=== PATIENT | female | born 1995 | race Caucasian/White ===

== ENCOUNTER 2020-10-21 03:54 | Inpatient (IN) | payer BC ==
[~2020-10-21] VITALS: Ht 154.9 cm; Wt 61.7 kg
[2020-10-21] MEDS ORDERED: MORPHINE SULFATE 4 MG/ML VIAL. IV PRN (04:00)
[2020-10-21] MEDS ORDERED: IV NORMAL SALINE 1000ML BAG 1,000 ML IV ONE (04:45)
[2020-10-21 04:56] LABS: BASO % 0 % (0-3); EOS # 0.1 x10^3/uL (0.0-0.7); EOS % 0 % (0-3); HEMATOCRIT 33.7 % (36.0-47.0); HEMOGLOBIN 11.5 g/dL (12.0-15.5); LYMPH # 1.1 x10^3/uL (1.0-4.8); LYMPH % 8 % (24-48); MEAN CORPUSCULAR HEMOGLOBIN 32 pg (25-35); MEAN CORPUSCULAR HGB CONC 34 g/dL (31-37); MEAN CORPUSCULAR VOLUME 93 fL (79-100); MONO # 1.4 x10^3/uL (0.0-1.1); MONO % 10 % (0-9); NEUT # 11.4 x10^3/uL (1.8-7.7); NEUT % 82 % (31-73); PLATELET COUNT 249 x10^3/uL (140-400); RED BLOOD COUNT 3.62 x10^6/uL (3.50-5.40); RED CELL DISTRIBUTION WIDTH 11.8 % (11.5-14.5)
[2020-10-21] MEDS ORDERED: cefTRIAXone IV Push 1 GM VIAL. IVP ONE (05:00)
[2020-10-21 05:14] LABS: CALCIUM 8.7 mg/dL (8.5-10.1); CREATININE 0.8 mg/dL (0.6-1.0); GFR 88.9; POTASSIUM 3.4 mmol/L (3.5-5.1)
[2020-10-21] MEDS ORDERED: KETOROLAC 15 MG/ML VIAL. IVP ONE (05:15)
[2020-10-21 05:20] LABS: ALBUMIN 3.3 g/dL (3.4-5.0); ALBUMIN/GLOBULIN RATIO 0.8 (1.0-1.7); MAGNESIUM 2.1 mg/dL (1.8-2.4); TOTAL BILIRUBIN 0.5 mg/dL (0.2-1.0); TOTAL PROTEIN 7.2 g/dL (6.4-8.2)
[2020-10-21] MEDS ORDERED: IOHEXOL 300 MG/ML 100ML VIAL. IV ONE (05:30)
[2020-10-21] MEDS ORDERED: CONTRAST GIVEN. MC PRN (05:30)
[2020-10-21] MEDS ORDERED: IOHEXOL 240 MG/ML 50ML VIAL. PO ONE (05:30)
--- NOTE | 2020-10-21 05:31 | PHYS DOC ---
Past Medical History Additional Past Medical Histor: Dmitry's, ADHD (FAYE RIOS DO) Past Surgical History: No Surgical History (FAYE RIOS DO) Smoking Status: Never Smoker Alcohol Use: Rarely Drug Use: Marijuana (FAYE RIOS DO) General Adult EDM: Chief Complaint: SKIN RASH/ABSCESS HPI: HPI: Patient is a 25 year old female presents with report of painful swelling and redness to left buttocks near her rectum that has been ongoing for the past several days. Patient reports was seen yesterday afternoon at [facility] urgent care and started on Augmentin and pain medication. Patient reports she is unsure if she had any fever however her temperature has only gotten up to 99 degrees. Patient has also been taking ibuprofen and Tylenol. Denies prior history of perirectal abscesses. Denies . Patient reports history of IUD. Denies diabetes. (FAYE RIOS DO) Review of Systems: Review of Systems: Constitutional: Denies fever or chills Eyes: Denies redness or eye pain HENT: Denies nasal congestion or sore throat Respiratory: Denies cough or shortness of breath Cardiovascular: Denies chest pain or palpitations GI: Denies abdominal pain; reports nausea : Denies dysuria or hematuria Musculoskeletal: Denies back pain or joint pain Integument: Denies rash; reports left perirectal swelling and redness Neurologic: Denies headache, focal weakness or sensory changes Complete systems were reviewed and found to be within normal limits, except as documented in this note. (FAYE RIOS DO) Heart Score: C/O Chest Pain: N/A (FAYE RIOS DO) Current Medications: Current Medications Medications (Trade) Dose Ordered Sig/Geoff Start Time Stop Time Status Last Admin Dose Admin Ceftriaxone Sodium (Rocephin) 1 gm 1X ONCE 10/21/20 05:00 10/21/20 05:12 DC Info (CONTRAST GIVEN -- Rx MONITORING) 1 each PRN DAILY PRN 10/21/20 05:30 10/23/20 05:29 Iohexol (Omnipaque 240 Mg/ml) 30 ml 1X ONCE 10/21/20 05:30 10/21/20 05:31 Iohexol (Omnipaque 300 Mg/ml) 75 ml 1X ONCE 10/21/20 05:30 10/21/20 05:31 Ketorolac Tromethamine (Toradol 15mg Vial) 15 mg 1X ONCE 10/21/20 05:15 10/21/20 05:16 DC Metronidazole 100 ml @ 100 mls/hr 1X ONCE 10/21/20 05:15 10/21/20 06:14 Sodium Chloride 1,000 ml @ 1,000 mls/hr 1X ONCE 10/21/20 04:45 10/21/20 05:44 (FAYE RIOS DO) Allergies: Allergies: Allergies Coded Allergies Type Severity Reaction Last Updated Verified oseltamivir Allergy Intermediate 10/21/20 Yes (FAYE RIOS DO) Physical Exam: PE: Constitutional: Well developed, well nourished, uncomfortable, non-toxic appearance HENT: Normocephalic, atraumatic Eyes: Conjunctiva normal, no discharge Neck: Normal range of motion, supple Lungs & Thorax: No respiratory distress, equal chest rise and fall Skin: Warm, dry, induration and erythema to left perirectal area, no fluctuance Extremities: No tenderness, ROM intact, no edema Neurologic: Alert and oriented X 3, no focal deficits noted Psychologic: Affect normal, judgment normal (FAYE RIOS DO) Current Patient Data: Labs: Laboratory Tests Test 10/21/20 04:33 10/21/20 04:39 White Blood Count 14.0 x10^3/uL (4.0-11.0) H Red Blood Count 3.62 x10^6/uL (3.50-5.40) Hemoglobin 11.5 g/dL (12.0-15.5) L Hematocrit 33.7 % (36.0-47.0) L Mean Corpuscular Volume 93 fL (79-100) Mean Corpuscular Hemoglobin 32 pg (25-35) Mean Corpuscular Hemoglobin Concent 34 g/dL (31-37) Red Cell Distribution Width 11.8 % (11.5-14.5) Platelet Count 249 x10^3/uL (140-400) Neutrophils (%) (Auto) 82 % (31-73) H Lymphocytes (%) (Auto) 8 % (24-48) L Monocytes (%) (Auto) 10 % (0-9) H Eosinophils (%) (Auto) 0 % (0-3) Basophils (%) (Auto) 0 % (0-3) Neutrophils # (Auto) 11.4 x10^3/uL (1.8-7.7) H Lymphocytes # (Auto) 1.1 x10^3/uL (1.0-4.8) Monocytes # (Auto) 1.4 x10^3/uL (0.0-1.1) H Eosinophils # (Auto) 0.1 x10^3/uL (0.0-0.7) Basophils # (Auto) 0.0 x10^3/uL (0.0-0.2) Sodium Level 137 mmol/L (136-145) Potassium Level 3.4 mmol/L (3.5-5.1) L Chloride Level 100 mmol/L (98-107) Carbon Dioxide Level 28 mmol/L (21-32) Anion Gap 9 (6-14) Blood Urea Nitrogen 12 mg/dL (7-20) Creatinine 0.8 mg/dL (0.6-1.0) Estimated GFR (Cockcroft-Gault) 88.9 BUN/Creatinine Ratio 15 (6-20) Glucose Level 107 mg/dL (70-99) H Lactic Acid Level 0.8 mmol/L (0.4-2.0) Calcium Level 8.7 mg/dL (8.5-10.1) Magnesium Level 2.1 mg/dL (1.8-2.4) Total Bilirubin 0.5 mg/dL (0.2-1.0) Aspartate Amino Transferase (AST) 33 U/L (15-37) Alanine Aminotransferase (ALT) 37 U/L (14-59) Alkaline Phosphatase 58 U/L (46-116) Total Protein 7.2 g/dL (6.4-8.2) Albumin 3.3 g/dL (3.4-5.0) L Albumin/Globulin Ratio 0.8 (1.0-1.7) L POC Urine HCG, Qualitative Hcg negative (Negative) Laboratory Tests 10/21/20 04:33 Laboratory Tests 10/21/20 04:33 (FAYE RIOS DO) EKG: EKG: [] (FAYE RIOS DO) Radiology/Procedures: Radiology/Procedures: [] (FAYE RIOS DO) Radiology/Procedures: [facility] [address] [place] [address] IMAGING REPORT Signed PATIENT: VINAYAK MONTAGUE ACCOUNT: [id number] : 1995 LOCATION: ER AGE: 25 SEX: F EXAM STATUS: REG ER ORD. PHYSICIAN: FAYE RIOS DO REASON: left perirectal swelling, eval for perirectal abscess/fistula PROCEDURE: CT ABD PELV W/ORAL&IV CONTRAST CT abdomen and pelvis with contrast PQRS statement: CT scans at this facility use dose reduction including either automated exposure control, iterative reconstructions, and /or weight based radiation dosing via mA and kV modification when appropriate to reduce radiation dose to as low as reasonably achievable. HISTORY: Left perirectal swelling, abscess/fistula. Contrast: 75 mL Omnipaque 300 intravenous contrast. Abdomen findings: Right lower lobe 6 mm pulmonary nodule image 1 extending outside the [id number]. Liver, gallbladder, pancreas, spleen, adrenal glands and kidneys are unremarkable. No obstruction or inflammation GI tract. Appendix is not identified may be surgically absent or is obscured by surrounding bowel. No abdominal fluid or adenopathy. Bones are unremarkable. Pelvis findings: Intrauterine device. Small volume of low-density pelvic fluid cul-de-sac. Indistinct ovarian hypodensities presumably follicles. Bladder, rectum and bones are unremarkable. At the left posterior perineum and intergluteal cleft surrounding the left lateral aspect of the anal canal extending posteriorly there is a rim-enhancing fluid collection with surrounding edema measuring 5 x 3 cm most likely a perianal abscess. Mild prominent left inguinal lymph nodes likely reactive. IMPRESSION: 1. Left perianal abscess as described above. 2. 6 mm solid pulmonary nodule of the right lower lobe extends outside the [id number] and is not fully imaged. Consider further assessment with outpatient CT chest imaging. 3. Other incidental findings as described above. Electronically signed by: Jaya Garcia MD (10/21/2020 6:42 AM) [facility] [place] DICTATED and SIGNED BY: JAYA GARCIA MD DATE: 10/21/20 [id number] (SUSAN RAZO DO) Course & Med Decision Making: Course & Med Decision Making Pertinent Labs and Imaging studies reviewed. (See chart for details) Patient presents with HPI and physical exam concerning for perirectal abscess. Patient had recently been seen at [facility] urgent care and started on Augmentin yesterday afternoon. Patient was also given pain medication. Patient reports this morning symptoms and pain have become worse. Afebrile. Labs obtained and posted to chart. WBC slightly elevated. Lactic acid within normal limits. Empiric antibiotic initiated. Pain addressed. CT abdomen/pelvis pending. 0600-sign out given to Dr. Razo for further evaluation and final disposition. Discussed current findings and plan with patient, who acknowledges understanding and agreement. (FAYE RIOS DO) Course & Med Decision Making Patient is a 25-year-old female who presented to ER due to rectal pain, patient was felt that the rectal abscess, discussed with general surgeon on-call Dr. Hoff who will see the patient today for surgery. Discussed with hospitalist on-call Dr. Woods who agrees admit the patient. (SUSAN RAZO DO) Dragon Disclaimer: Dragon Disclaimer: This electronic medical record was generated, in whole or in part, using a voice recognition dictation system. (FAYE RIOS DO) Departure Departure Impression: Primary Impression: Perirectal abscess Additional Impression: Failure of outpatient treatment Disposition: ADMITTED INPT THIS HOSP Admitting Physician: [facility] (Dr. WOODS) (SUSAN RAZO DO) Condition: STABLE Referrals: NO PCP (PCP) FAYE RIOS DO Oct 21, 2020 05:31 SUSAN RAZO DO Oct 21, 2020 07:06
[2020-10-21 05:37] LABS: BILIRUBIN,URINE NEGATIVE (NEG); CLARITY,URINE CLOUDY; COLOR,URINE YELLOW; NITRITE,URINE NEGATIVE (NEG); PROTEIN,URINE NEGATIVE (NEG-TRACE); UROBILINOGEN,URINE 0.2 mg/dL (0.2 mg/dL)
[2020-10-21 05:47] LABS: BACTERIA,URINE MANY /HPF (0-FEW)
[2020-10-21] MEDS ORDERED: FLUO90CA5 PO (05:52)
[2020-10-21] MEDS ORDERED: LISD30CA5 PO (05:52)
[2020-10-21] MEDS ORDERED: THYROID MEDICINE (05:53)
[2020-10-21] MEDS ORDERED: fentaNYL PF VIAL 100 MCG/2 ML VIAL IV ONE (06:45)
--- NOTE | 2020-10-21 06:45 | RAD ---
CT abdomen and pelvis with contrast PQRS statement: CT scans at this facility use dose reduction including either automated exposure cont rol, iterative reconstructions, and /or weight based radiation dosing via mA and kV modification when appropriate to reduce radiation dose to as low as reasonably achievable. HISTORY: Left perirectal swelling, abscess/fistula. Contrast: 75 mL Omnipaque 300 intravenous contrast. Abdomen findings: Right lower lobe 6 mm pulmonary nodule image 1 extending outside the [id number]. Liver, gallbladder, pancreas, spleen, adrenal glands and kidneys are unremarkable. No obstruction or inflammation GI tract. Appendix is not identified may be surgically absent or is obscured by surroun ding bowel. No abdominal fluid or adenopathy. Bones are unremarkable. Pelvis findings: Intrauterine device. Small volume of low-density pelvic fluid cul-de-sac. Indistinct ovarian hypodensities presumably follicles. Bladder, rectum and bones are unremarkable. At the left posterior perineum and intergluteal cleft surrounding the left lateral aspect of the anal canal exten ding posteriorly there is a rim-enhancing fluid collection with surrounding edema measuring 5 x 3 cm most likely a perianal abscess. Mild prominent left inguinal lymph nodes likely reactive. IMPRESSION: 1. Left perianal abscess as described above. 2. 6 mm solid pulmonary nodule of the right lower lobe extends outside the [id number] and is not f ully imaged. Consider further assessment with outpatient CT chest imaging. 3. Other incidental findings as described above. Electronically signed by: David Garcia MD (10/21/2020 6:42 AM) [facility]
[2020-10-21] MEDS ORDERED: PIP/TAZO PER PHARMACY MC PRN (07:30)
[2020-10-21] MEDS: PIPERACILLIN/TAZOBACTAM 3.375 GM in IV NORMAL SALINE 50ML 50 ML IV SCH ×3 (08:08→17:53)
--- NOTE | 2020-10-21 08:48 | PDOC2 ---
MARII BLANCO [employer] 10/21/20 0848: CONSULT Date of Consult Date of Consult DATE: 10/21/20 TIME: 08:43 Reason for Consult Reason for Consult: jennifer rectal abscess Referring Physician Referring Physician: ER Identification/Chief Complaint Chief Complaint rectal pain Source Source: Chart review, Patient History of Present Illness Reason for Visit: Admitted with 4 days of worsening rectal pain. Painful stools, no drainage from area. Subjective low grade fevers. No history of injury, or previous skin infections Past Medical History Pulmonary: Bronchitis Psych: Anxiety, Depression, Other (ADHD) ENT: Allergic Rhinitis Past Surgical History Past Surgical History: Tonsillectomy Family History Family History: Other (noncontributory to current illness ) Social History <1 pack per day (occasionally vap) ALCOHOL: occassional Drugs: Marijuana Lives: Alone Current Problem List Problem List Problems Medical Problems: (1) Failure of outpatient treatment Status: Acute (2) Perirectal abscess Status: Acute Current Medications Current Medications Current Medications Sodium Chloride 1,000 ml @ 1,000 mls/hr 1X ONCE IV Last administered on 10/21/20at 05:28; Start 10/21/20 at 04:45; Stop 10/21/20 at 05:44; Status DC Ceftriaxone Sodium (Rocephin) 1 gm 1X ONCE IVP Last administered on 10/21/20at 05:31; Start 10/21/20 at 05:00; Stop 10/21/20 at 05:12; Status DC Metronidazole 100 ml @ 100 mls/hr 1X ONCE IV Last administered on 10/21/20at 05:31; Start 10/21/20 at 05:15; Stop 10/21/20 at 06:14; Status DC Ketorolac Tromethamine (Toradol 15mg Vial) 15 mg 1X ONCE IVP Last administered on 10/21/20at 05:28; Start 10/21/20 at 05:15; Stop 10/21/20 at 05:16; Status DC Iohexol (Omnipaque 240 Mg/ml) 30 ml 1X ONCE PO Last administered on 10/21/20at 06:20; Start 10/21/20 at 05:30; Stop 10/21/20 at 05:31; Status DC Iohexol (Omnipaque 300 Mg/ml) 75 ml 1X ONCE IV Last administered on 10/21/20at 06:20; Start 10/21/20 at 05:30; Stop 10/21/20 at 05:31; Status DC Info (CONTRAST GIVEN -- Rx MONITORING) 1 each PRN DAILY PRN MC SEE COMMENTS; Start 10/21/20 at 05:30; Stop 10/23/20 at 05:29 Fentanyl Citrate (Fentanyl 2ml Vial) 50 mcg 1X ONCE IV Last administered on 10/21/20at 07:03; Start 10/21/20 at 06:45; Stop 10/21/20 at 06:46; Status DC Piperacillin Sod/ Tazobactam Sod (Zosyn Per Pharmacy) 1 each PRN DAILY PRN MC SEE COMMENTS; Start 10/21/20 at 07:30 Piperacillin Sod/ Tazobactam Sod 3.375 gm/Sodium Chloride 50 ml @ 100 mls/hr Q6HRS IV Last administered on 10/21/20at 08:08; Start 10/21/20 at 08:00 Active Scripts Active Reported [Thyroid Medicine ] Fluoxetine Dr (Fluoxetine Hcl) 90 Mg Capsule.dr 1 Cap PO WEEKLY 28 Days Vyvanse (Lisdexamfetamine Dimesylate) 30 Mg Capsule 1 Cap PO DAILYWBKFT MDD 1 Capsule(s) 5 Days Allergies Allergies: Coded Allergies: oseltamivir (Verified Allergy, Intermediate, 10/21/20) ROS General: YES: Fatigue; No: Chills PSYCHOLOGICAL ROS: No: Anxiety, Depression Eyes: No Blurry vision, No Double vision HEENT: No: Heacaches, Sore Throat Hematological and Lymphatic: No: Bleeding Problems, Blood Clots Respiratory: YES: Cough; No: Shortness of breath Cardiovascular: No Chest Pain, No Palpitations Gastrointestinal: No Nausea, No Vomiting, No Diarrhea Genitourinary: No Dysuria, No Hematuria Musculoskeletal: Yes Muscle Pain; No Joint Pain Neurological: No Impaired Coord/balance, No Numbness/Tingling Skin: Yes Other (see hpi) Physical Exam General: Alert, Oriented X3, Cooperative HEENT: Atraumatic, PERRLA Lungs: Clear to auscultation, Normal air movement Heart: Regular rate, Normal S1, Normal S2 Abdomen: Soft, No tenderness, No hepatosplenomegaly Extremities: No clubbing, No cyanosis Skin: Other (left perirectal area tender, erythema, 2 small pustules seen, induration) Neuro: Normal speech, Sensation intact Psych/Mental Status: Mental status NL, Mood NL MUSCULOSKELETAL: No deformity, No swelling Vitals VITALS Vital Signs Date Time Temp Pulse Resp B/P (MAP) Pulse Ox O2 Delivery O2 Flow Rate FiO2 10/21/20 07:03 100 Room Air 10/21/20 07:02 7 97/68 (78) 10/21/20 04:06 98.4 18 98.4 Labs Labs Laboratory Tests Test 10/21/20 04:30 10/21/20 04:33 10/21/20 04:39 10/21/20 07:05 Urine Collection Type Void Urine Color Yellow Urine Clarity Cloudy Urine pH 6.0 (<5.0-8.0) Urine Specific [place] 1.025 (1.000-1.030) Urine Protein Negative mg/dL (NEG-TRACE) Urine Glucose (UA) Negative mg/dL (NEG) Urine Ketones (Stick) Trace mg/dL (NEG) Urine Blood Negative (NEG) Urine Nitrite Negative (NEG) Urine Bilirubin Negative (NEG) Urine Urobilinogen Dipstick 0.2 mg/dL (0.2 mg/dL) Urine Leukocyte Esterase Small (NEG) Urine RBC 1-2 /HPF (0-2) Urine WBC 5-10 /HPF (0-4) Urine Squamous Epithelial Cells Many /LPF Urine Bacteria Many /HPF (0-FEW) Urine Mucus Marked /LPF White Blood Count 14.0 x10^3/uL (4.0-11.0) Red Blood Count 3.62 x10^6/uL (3.50-5.40) Hemoglobin 11.5 g/dL (12.0-15.5) Hematocrit 33.7 % (36.0-47.0) Mean Corpuscular Volume 93 fL (79-100) Mean Corpuscular Hemoglobin 32 pg (25-35) Mean Corpuscular Hemoglobin Concent 34 g/dL (31-37) Red Cell Distribution Width 11.8 % (11.5-14.5) Platelet Count 249 x10^3/uL (140-400) Neutrophils (%) (Auto) 82 % (31-73) Lymphocytes (%) (Auto) 8 % (24-48) Monocytes (%) (Auto) 10 % (0-9) Eosinophils (%) (Auto) 0 % (0-3) Basophils (%) (Auto) 0 % (0-3) Neutrophils # (Auto) 11.4 x10^3/uL (1.8-7.7) Lymphocytes # (Auto) 1.1 x10^3/uL (1.0-4.8) Monocytes # (Auto) 1.4 x10^3/uL (0.0-1.1) Eosinophils # (Auto) 0.1 x10^3/uL (0.0-0.7) Basophils # (Auto) 0.0 x10^3/uL (0.0-0.2) Sodium Level 137 mmol/L (136-145) Potassium Level 3.4 mmol/L (3.5-5.1) Chloride Level 100 mmol/L (98-107) Carbon Dioxide Level 28 mmol/L (21-32) Anion Gap 9 (6-14) Blood Urea Nitrogen 12 mg/dL (7-20) Creatinine 0.8 mg/dL (0.6-1.0) Estimated GFR (Cockcroft-Gault) 88.9 BUN/Creatinine Ratio 15 (6-20) Glucose Level 107 mg/dL (70-99) Lactic Acid Level 0.8 mmol/L (0.4-2.0) Calcium Level 8.7 mg/dL (8.5-10.1) Magnesium Level 2.1 mg/dL (1.8-2.4) Total Bilirubin 0.5 mg/dL (0.2-1.0) Aspartate Amino Transf (AST/SGOT) 33 U/L (15-37) Alanine Aminotransferase (ALT/SGPT) 37 U/L (14-59) Alkaline Phosphatase 58 U/L (46-116) Total Protein 7.2 g/dL (6.4-8.2) Albumin 3.3 g/dL (3.4-5.0) Albumin/Globulin Ratio 0.8 (1.0-1.7) Bedside Urine HCG, Qualitative Hcg negative (Negative) SARS-CoV-2 Antigen (Rapid) Negative (NEGATIVE) Laboratory Tests Test 10/21/20 04:30 10/21/20 04:33 10/21/20 04:39 10/21/20 07:05 Urine Collection Type Void Urine Color Yellow Urine Clarity Cloudy Urine pH 6.0 (<5.0-8.0) Urine Specific [place] 1.025 (1.000-1.030) Urine Protein Negative mg/dL (NEG-TRACE) Urine Glucose (UA) Negative mg/dL (NEG) Urine Ketones (Stick) Trace mg/dL (NEG) Urine Blood Negative (NEG) Urine Nitrite Negative (NEG) Urine Bilirubin Negative (NEG) Urine Urobilinogen Dipstick 0.2 mg/dL (0.2 mg/dL) Urine Leukocyte Esterase Small (NEG) Urine RBC 1-2 /HPF (0-2) Urine WBC 5-10 /HPF (0-4) Urine Squamous Epithelial Cells Many /LPF Urine Bacteria Many /HPF (0-FEW) Urine Mucus Marked /LPF White Blood Count 14.0 x10^3/uL (4.0-11.0) Red Blood Count 3.62 x10^6/uL (3.50-5.40) Hemoglobin 11.5 g/dL (12.0-15.5) Hematocrit 33.7 % (36.0-47.0) Mean Corpuscular Volume 93 fL (79-100) Mean Corpuscular Hemoglobin 32 pg (25-35) Mean Corpuscular Hemoglobin Concent 34 g/dL (31-37) Red Cell Distribution Width 11.8 % (11.5-14.5) Platelet Count 249 x10^3/uL (140-400) Neutrophils (%) (Auto) 82 % (31-73) Lymphocytes (%) (Auto) 8 % (24-48) Monocytes (%) (Auto) 10 % (0-9) Eosinophils (%) (Auto) 0 % (0-3) Basophils (%) (Auto) 0 % (0-3) Neutrophils # (Auto) 11.4 x10^3/uL (1.8-7.7) Lymphocytes # (Auto) 1.1 x10^3/uL (1.0-4.8) Monocytes # (Auto) 1.4 x10^3/uL (0.0-1.1) Eosinophils # (Auto) 0.1 x10^3/uL (0.0-0.7) Basophils # (Auto) 0.0 x10^3/uL (0.0-0.2) Sodium Level 137 mmol/L (136-145) Potassium Level 3.4 mmol/L (3.5-5.1) Chloride Level 100 mmol/L (98-107) Carbon Dioxide Level 28 mmol/L (21-32) Anion Gap 9 (6-14) Blood Urea Nitrogen 12 mg/dL (7-20) Creatinine 0.8 mg/dL (0.6-1.0) Estimated GFR (Cockcroft-Gault) 88.9 BUN/Creatinine Ratio 15 (6-20) Glucose Level 107 mg/dL (70-99) Lactic Acid Level 0.8 mmol/L (0.4-2.0) Calcium Level 8.7 mg/dL (8.5-10.1) Magnesium Level 2.1 mg/dL (1.8-2.4) Total Bilirubin 0.5 mg/dL (0.2-1.0) Aspartate Amino Transf (AST/SGOT) 33 U/L (15-37) Alanine Aminotransferase (ALT/SGPT) 37 U/L (14-59) Alkaline Phosphatase 58 U/L (46-116) Total Protein 7.2 g/dL (6.4-8.2) Albumin 3.3 g/dL (3.4-5.0) Albumin/Globulin Ratio 0.8 (1.0-1.7) Bedside Urine HCG, Qualitative Hcg negative (Negative) SARS-CoV-2 Antigen (Rapid) Negative (NEGATIVE) Assessment/Plan Assessment/Plan perirectal abscess--plan for I&D today KERWIN CANALES MD 10/21/20 1046: CONSULT Assessment/Plan Assessment/Plan Patient seen and examined by me complaining of left gluteal pain. Exam shows erythema of the left gluteus very tender to palpation leukocytosis CT scan showing 5 cm perirectal abscess. Plan for incision and drainage today agree with Yeung assessment plan MARII BLANCO APRN Oct 21, 2020 08:48 KERWIN CANALES MD Oct 21, 2020 10:46
[2020-10-21 09:23] VITALS: BP 113/74
[2020-10-21] MEDS ORDERED: DEXTROSE 50% 25 GM / 50ML DISP.SYRIN. IV PRN (10:15)
[2020-10-21] MEDS ORDERED: MORPHINE SULFATE 2 MG/ML VIAL. IVP PRN (10:15)
[2020-10-21] MEDS ORDERED: MORPHINE SULFATE 2 MG/ML VIAL. IV PRN (10:15)
[2020-10-21] MEDS ORDERED: ACETAMINOPHEN 325 MG TABLET. PO PRN (10:15)
[2020-10-21] MEDS ORDERED: IV RINGERS,LACTATED 1000ML 1,000 ML IV SCH (10:15)
[2020-10-21] MEDS ORDERED: fentaNYL PF VIAL 100 MCG/2 ML VIAL IVP PRN (10:15)
[2020-10-21] MEDS: IV NORMAL SALINE 1000ML BAG 1,000 ML IV SCH ×2 (10:15→20:31)
[2020-10-21] MEDS ORDERED: PROCHLORPERAZINE 10 MG/2 ML VIAL. IVP PRN (10:15)
[2020-10-21] MEDS ORDERED: SENNOSIDES 8.6 MG TABLET PO PRN (10:15)
[2020-10-21] MEDS ORDERED: DOCUSATE SODIUM 100 MG CAPSULE. PO PRN (10:15)
[2020-10-21] MEDS ORDERED: HYDROmorphone 2 MG/ML VIAL IVP PRN (10:15)
[2020-10-21] MEDS ORDERED: fentaNYL PF VIAL 100 MCG/2 ML VIAL ONE ×4 (10:40→12:50)
[2020-10-21] MEDS: fentaNYL PF VIAL 100 MCG/2 ML VIAL IVP PRN ×5 (10:45→12:53)
[2020-10-21] MEDS ORDERED: BUPIVACAINE-EPI 0.5% 30 ML VIAL KIT. ONE (11:05)
[2020-10-21] MEDS ORDERED: KETOROLAC 30 MG/ML VIAL. ONE (11:24)
[2020-10-21] MEDS ORDERED: PROPOFOL 10 MG/ML (20ML) VIAL. IV ONE (11:24)
[2020-10-21] MEDS ORDERED: DEXAMETHASONE SOD PHOS 4 MG/ML VIAL ONE (11:24)
[2020-10-21] MEDS ORDERED: LIDOCAINE 2% PF 5 ML VIAL. ONE (11:24)
[2020-10-21] MEDS ORDERED: ONDANSETRON PF 4 MG/2 ML VIAL. ONE (11:24)
--- NOTE | 2020-10-21 11:43 | PDOC4 ---
Operative Note Operative Note Date: October 212020 at 1141 Preoperative diagnosis: Perirectal abscess Postoperative diagnosis: Same Procedure: Incision and drainage of perirectal abscess Specimen: Cultures Surgeon: Jose Armando Dictation: Patient is 25-year-old female was mated to the hospital with left gluteal pain for several days she did receive a IM injection of penicillin at urgent care but has had no relief. CT scan shows a 5 cm abscess in the perirectal space on the left side. The procedure of incision and drainage of perirectal abscess was explained to the patient detail risk benefits were also discussed including bleeding infection alternatives to this procedure also discussed with patient who seemed to understand and gave both verbal and written consent to have the procedure performed. Patient was taken to the operating room placed in the supine position general anesthesia was initiated once patient was sleeping in bed she placed in lithotomy positioning and her perineum was prepped and draped usual sterile fashion using Betadine scrub and solution. Area of erythema on the left side was injected with quarter percent Marcaine with epinephrine an incision was made with 10 blade scalpel a large amount of purulent material was expressed cultures were taken purulent material was suctioned from the wound. The wound was then irrigated with copious amounts normal saline and suctioned dry hemostasis was controlled with electrocautery. The wound was then packed with half-inch iodoform new gauze. Wound was dressed with 4 x 4's and mesh pants. Patient was awakened and extubated operating room taken recovery in stable condition all sponge instrument needle counts listed as correct estimated blood loss 10 mL KERWIN CANALES MD Oct 21, 2020 11:43
[2020-10-21] MEDS ORDERED: SEVOFLURANE 31 TO 60 MINUTES. IH ONE (11:49)
--- NOTE | 2020-10-21 13:14 | NUR ---
SW following for discharge planning. Spoke with RN and reviewed chart. Pt from home. Pt on room air, regular diet, IV Zosyn. RAPID COVID result negative. Surgery today. No anticipated SW needs on discharge. SW following. Addendum: 10/26/20 at 0952 by VINOD ALVES SW Reviewed chart. Pt discharged home over the weekend with Katarina ZHONG. No further SW needs at this time.
[2020-10-21] MEDS: oxyCODONE/APAP 5/325 1 TAB TABLET PO PRN ×2 (14:16→20:36)
[2020-10-21] MEDS: KETOROLAC 15 MG/ML VIAL. IVP SCH ×2 (14:16→17:54)
[2020-10-21] MEDS: ENOXAPARIN 40 MG/0.4 ML SYRINGE. SQ SCH (14:19)
[2020-10-21 15:00] VITALS: BP 107/63
--- NOTE | 2020-10-21 16:35 | PDOC1 ---
History and Physical Date of Service: DOS: DATE: 10/21/20 TIME: 16:24 Chief Complaint: Chief Complain: -Rectal pain History of Present Illness: HPI: 25 year old female presents with report of painful swelling and redness to left buttocks near her rectum that has been ongoing for the past several days. Patient reports was seen yesterday afternoon at [facility] urgent care and started on Augmentin and pain medication. Patient reports she is unsure if she had any fever however her temperature has only gotten up to 99 degrees. Patient has also been taking ibuprofen and Tylenol. Denies prior history of perirectal abscesses. Denies . Patient reports history of IUD. Denies diabetes. Past Medical/Surgical History: PMH/PSH: Past medical history: Dmitry's thyroiditis, ADHD Past surgical history: No surgical history Allergies: Allergies: Coded Allergies: oseltamivir (Verified Allergy, Intermediate, 10/21/20) Family History: Family History: Reviewed with no relevant findings Social History: Social History: Endorses marijuana use daily. Denies cigarette smoke tobacco or alcohol abuse. Current Medications: Current Medications Current Medications Sodium Chloride 1,000 ml @ 1,000 mls/hr 1X ONCE IV Last administered on 10/21/20at 05:28; Start 10/21/20 at 04:45; Stop 10/21/20 at 05:44; Status DC Ceftriaxone Sodium (Rocephin) 1 gm 1X ONCE IVP Last administered on 10/21/20at 05:31; Start 10/21/20 at 05:00; Stop 10/21/20 at 05:12; Status DC Metronidazole 100 ml @ 100 mls/hr 1X ONCE IV Last administered on 10/21/20at 05:31; Start 10/21/20 at 05:15; Stop 10/21/20 at 06:14; Status DC Ketorolac Tromethamine (Toradol 15mg Vial) 15 mg 1X ONCE IVP Last administered on 10/21/20at 05:28; Start 10/21/20 at 05:15; Stop 10/21/20 at 05:16; Status DC Iohexol (Omnipaque 240 Mg/ml) 30 ml 1X ONCE PO Last administered on 10/21/20at 06:20; Start 10/21/20 at 05:30; Stop 10/21/20 at 05:31; Status DC Iohexol (Omnipaque 300 Mg/ml) 75 ml 1X ONCE IV Last administered on 10/21/20at 06:20; Start 10/21/20 at 05:30; Stop 10/21/20 at 05:31; Status DC Info (CONTRAST GIVEN -- Rx MONITORING) 1 each PRN DAILY PRN MC SEE COMMENTS; Start 10/21/20 at 05:30; Stop 10/23/20 at 05:29 Fentanyl Citrate (Fentanyl 2ml Vial) 50 mcg 1X ONCE IV Last administered on 10/21/20at 07:03; Start 10/21/20 at 06:45; Stop 10/21/20 at 06:46; Status DC Piperacillin Sod/ Tazobactam Sod (Zosyn Per Pharmacy) 1 each PRN DAILY PRN MC SEE COMMENTS; Start 10/21/20 at 07:30 Piperacillin Sod/ Tazobactam Sod 3.375 gm/Sodium Chloride 50 ml @ 100 mls/hr Q6HRS IV Last administered on 10/21/20at 14:20; Start 10/21/20 at 08:00 Fentanyl Citrate (Fentanyl 2ml Vial) 25 mcg PRN Q5MIN PRN IVP MILD PAIN 1-3; Start 10/21/20 at 10:15; Stop 10/22/20 at 10:14 Fentanyl Citrate (Fentanyl 2ml Vial) 50 mcg PRN Q5MIN PRN IVP MODERATE PAIN 4-6 Last administered on 10/21/20at 12:53; Start 10/21/20 at 10:15; Stop 10/22/20 at 10:14 Morphine Sulfate (Morphine Sulfate) 1 mg PRN Q10MIN PRN IVP SEVERE PAIN 7-10; Start 10/21/20 at 10:15; Stop 10/22/20 at 10:14 Ringer's Solution 1,000 ml @ 30 mls/hr Q24H IV Last administered on 10/21/20at 10:40; Start 10/21/20 at 10:15; Stop 10/21/20 at 22:14 Hydromorphone HCl (Dilaudid) 0.5 mg PRN Q10MIN PRN IVP SEVERE PAIN 7-10, 2nd CHOICE; Start 10/21/20 at 10:15; Stop 10/22/20 at 10:14 Prochlorperazine Edisylate (Compazine) 5 mg PACU PRN PRN IVP NAUSEA, MRX1; Start 10/21/20 at 10:15; Stop 10/22/20 at 10:14 Sennosides (Senna) 17.2 mg PRN BID PRN PO CONSTIPATION; Start 10/21/20 at 10:15 Docusate Sodium (Colace) 100 mg PRN DAILY PRN PO HARD STOOLS; Start 10/21/20 at 10:15 Ondansetron HCl (Zofran) 4 mg PRN Q6HRS PRN IVP NAUSEA/VOMITING; Start 10/21/20 at 10:15 Dextrose (Dextrose 50%-Water Syringe) 12.5 gm PRN Q15MIN PRN IV SEE COMMENTS; Start 10/21/20 at 10:15 Sodium Chloride 1,000 ml @ 100 mls/hr Q10H IV Last administered on 10/21/20at 10:15; Start 10/21/20 at 10:15 Acetaminophen (Tylenol) 650 mg PRN Q4HRS PRN PO TEMP OVER 100.4F OR MILD PAIN; Start 10/21/20 at 10:15 Enoxaparin Sodium (Lovenox 40mg Syringe) 40 mg Q24H SQ Last administered on 10/21/20at 14:19; Start 10/21/20 at 12:00 Morphine Sulfate (Morphine Sulfate) 1 mg PRN Q1HR PRN IV PAIN; Start 10/21/20 at 10:15 Morphine Sulfate (Morphine Sulfate) 2 mg PRN Q2HR PRN IV SEVERE PAIN 7-10; St art 10/21/20 at 04:00; Stop 10/22/20 at 03:59 Fentanyl Citrate (Fentanyl 2ml Vial) 100 mcg STK-MED ONCE .ROUTE ; Start 10/21/20 at 10:40; Stop 10/21/20 at 10:41; Status DC Fentanyl Citrate (Fentanyl 2ml Vial) 50 mcg PACU PRN PRN IVP PAIN Last administered on 10/21/20at 10:58; Start 10/21/20 at 10:45 Bupivacaine HCl/ Epinephrine Bitart (Sensorcain-Epi 0.5% Kit) 30 ml STK-MED ONCE .ROUTE Last administered on 10/21/20at 11:27; Start 10/21/20 at 11:05; Stop 10/21/20 at 11:06; Status DC Propofol (Diprivan) 200 mg STK-MED ONCE IV ; Start 10/21/20 at 11:24; Stop 10/21/20 at 11:24; Status DC Lidocaine HCl (Lidocaine Pf 2% Vial) 5 ml STK-MED ONCE .ROUTE ; Start 10/21/20 at 11:24; Stop 10/21/20 at 11:24; Status DC Ondansetron HCl (Zofran) 4 mg STK-MED ONCE .ROUTE ; Start 10/21/20 at 11:24; Stop 10/21/20 at 11:24; Status DC Dexamethasone Sodium Phosphate (Decadron) 4 mg STK-MED ONCE .ROUTE ; Start 10/21/20 at 11:24; Stop 10/21/20 at 11:24; Status DC Fentanyl Citrate (Fentanyl 2ml Vial) 100 mcg STK-MED ONCE .ROUTE ; Start 10/21/20 at 11:24; Stop 10/21/20 at 11:25; Status DC Ketorolac Tromethamine (Toradol 30mg Vial) 30 mg STK-MED ONCE .ROUTE ; Start 10/21/20 at 11:24; Stop 10/21/20 at 11:25; Status DC Oxycodone/ Acetaminophen (Percocet 5/325) 1 tab PRN Q4HRS PRN PO MODERATE PAIN Last administered on 10/21/20at 14:16; Start 10/21/20 at 11:45 Oxycodone/ Acetaminophen (Percocet 5/325) 2 tab PRN Q4HRS PRN PO SEVERE PAIN; Start 10/21/20 at 11:45 Ketorolac Tromethamine (Toradol 15mg Vial) 15 mg Q6HRS IVP Last administered on 10/21/20at 14:16; Start 10/21/20 at 12:00; Stop 10/23/20 at 11:59 Sevoflurane (Ultane) 30 ml STK-MED ONCE IH ; Start 10/21/20 at 11:49; Stop 10/21/20 at 11:50; Status DC Fentanyl Citrate (Fentanyl 2ml Vial) 100 mcg STK-MED ONCE .ROUTE ; Start 1 at 12:08; Stop 10/21/20 at 12:08; Status DC Fentanyl Citrate (Fentanyl 2ml Vial) 100 mcg STK-MED ONCE .ROUTE ; Start 10/21/20 at 12:50; Stop 10/21/20 at 12:51; Status DC Active Scripts Active Reported [Thyroid Medicine ] Fluoxetine Dr (Fluoxetine Hcl) 90 Mg Capsule.dr 1 Cap PO WEEKLY 28 Days Vyvanse (Lisdexamfetamine Dimesylate) 30 Mg Capsule 1 Cap PO DAILYWBKFT MDD 1 Capsule(s) 5 Days ROS: Review of Systems Review of System REVIEW OF SYSTEMS: GENERAL: Denies weakness SKIN: No bruising, hair changes or rashes. EYES: No blurred, double or loss of vision. NOSE AND THROAT: No history of nosebleeds, hoarseness or sore throat. HEART: No history of palpitations, chest pain or shortness of breath on exertion. LUNGS: Denies cough, hemoptysis, wheezing or shortness of breath. GASTROINTESTINAL: Denies changes in appetite, nausea, vomiting, diarrhea or constipation. GENITOURINARY: No history of frequency, urgency, hesitancy or nocturia. NEUROLOGIC: Denies history of numbness, tingling, or tremor. PSYCHIATRIC: No history of panic, anxiety or depression. ENDOCRINE: No history of heat or cold intolerance, polyuria or polydipsia. EXTREMITIES: Denies joint pain, pain on walking or stiffness. Physical Exam: Vital Signs: Vital Signs Date Time Temp Pulse Resp B/P (MAP) Pulse Ox O2 Delivery O2 Flow Rate FiO2 10/21/20 15:00 98.2 84 17 107/63 (78) 92 Room Air 98.2 10/21/20 14:16 10.0 Physcial Exam: GEN: No apparent distress. Alert and oriented HEENT: Normal cephalic, atraumatic, external auditory canals are patent EYES: Extraocular muscles are intact, pupil are equally round and reactive to light and accommodation MUSCULOSKELETAL: Well developed , well nourished, good range of motion ENDOCRINE: No thyromegaly was palpated LYMPHATICS: No cervical chain or axillary nodes were noted HEMATOPOIETIC: No bruising NECK: Supple, no JVD, no thyromegaly was noted LUNGS: Clear to auscultation in all lung farah without rhonchi or wheezing HEART: RRR, S!, S2 present. Peripheral pulses intact, no obvious murmurs noted ABDOMEN: Soft, nontender. Positive bowel sounds, no organomegaly, normal bowel sounds EXTREMITIES: Without clubbing, cyanosis, or edema. Pedal pulses intact. Negative Homans sign NEUROLOGIC: Normal speech and tone. A&O x 3, moves all extremities, no obvious focal deficits PSYCHIATRIC: Normal affect, normal mood. Stable SKIN: No ulcerations or rashes, good skin turgor, no jaundice VASCULAR: Good capillary refill, neurovascular bundle appears to be intact Labs: Labs: Laboratory Tests Test 10/21/20 04:30 10/21/20 04:33 10/21/20 04:39 10/21/20 07:05 Urine Collection Type Void Urine Color Yellow Urine Clarity Cloudy Urine pH 6.0 (<5.0-8.0) Urine Specific [place] 1.025 (1.000-1.030) Urine Protein Negative mg/dL (NEG-TRACE) Urine Glucose (UA) Negative mg/dL (NEG) Urine Ketones (Stick) Trace mg/dL (NEG) Urine Blood Negative (NEG) Urine Nitrite Negative (NEG) Urine Bilirubin Negative (NEG) Urine Urobilinogen Dipstick 0.2 mg/dL (0.2 mg/dL) Urine Leukocyte Esterase Small (NEG) Urine RBC 1-2 /HPF (0-2) Urine WBC 5-10 /HPF (0-4) Urine Squamous Epithelial Cells Many /LPF Urine Bacteria Many /HPF (0-FEW) Urine Mucus Marked /LPF White Blood Count 14.0 x10^3/uL (4.0-11.0) Red Blood Count 3.62 x10^6/uL (3.50-5.40) Hemoglobin 11.5 g/dL (12.0-15.5) Hematocrit 33.7 % (36.0-47.0) Mean Corpuscular Volume 93 fL (79-100) Mean Corpuscular Hemoglobin 32 pg (25-35) Mean Corpuscular Hemoglobin Concent 34 g/dL (31-37) Red Cell Distribution Width 11.8 % (11.5-14.5) Platelet Count 249 x10^3/uL (140-400) Neutrophils (%) (Auto) 82 % (31-73) Lymphocytes (%) (Auto) 8 % (24-48) Monocytes (%) (Auto) 10 % (0-9) Eosinophils (%) (Auto) 0 % (0-3) Basophils (%) (Auto) 0 % (0-3) Neutrophils # (Auto) 11.4 x10^3/uL (1.8-7.7) Lymphocytes # (Auto) 1.1 x10^3/uL (1.0-4.8) Monocytes # (Auto) 1.4 x10^3/uL (0.0-1.1) Eosinophils # (Auto) 0.1 x10^3/uL (0.0-0.7) Basophils # (Auto) 0.0 x10^3/uL (0.0-0.2) Sodium Level 137 mmol/L (136-145) Potassium Level 3.4 mmol/L (3.5-5.1) Chloride Level 100 mmol/L (98-107) Carbon Dioxide Level 28 mmol/L (21-32) Anion Gap 9 (6-14) Blood Urea Nitrogen 12 mg/dL (7-20) Creatinine 0.8 mg/dL (0.6-1.0) Estimated GFR (Cockcroft-Gault) 88.9 BUN/Creatinine Ratio 15 (6-20) Glucose Level 107 mg/dL (70-99) Lactic Acid Level 0.8 mmol/L (0.4-2.0) Calcium Level 8.7 mg/dL (8.5-10.1) Magnesium Level 2.1 mg/dL (1.8-2.4) Total Bilirubin 0.5 mg/dL (0.2-1.0) Aspartate Amino Transf (AST/SGOT) 33 U/L (15-37) Alanine Aminotransferase (ALT/SGPT) 37 U/L (14-59) Alkaline Phosphatase 58 U/L (46-116) Total Protein 7.2 g/dL (6.4-8.2) Albumin 3.3 g/dL (3.4-5.0) Albumin/Globulin Ratio 0.8 (1.0-1.7) Bedside Urine HCG, Qualitative Hcg negative (Negative) SARS-CoV-2 Antigen (Rapid) Negative (NEGATIVE) Laboratory Tests Test 10/21/20 04:30 10/21/20 04:33 10/21/20 04:39 10/21/20 07:05 Urine Collection Type Void Urine Color Yellow Urine Clarity Cloudy Urine pH 6.0 (<5.0-8.0) Urine Specific [place] 1.025 (1.000-1.030) Urine Protein Negative mg/dL (NEG-TRACE) Urine Glucose (UA) Negative mg/dL (NEG) Urine Ketones (Stick) Trace mg/dL (NEG) Urine Blood Negative (NEG) Urine Nitrite Negative (NEG) Urine Bilirubin Negative (NEG) Urine Urobilinogen Dipstick 0.2 mg/dL (0.2 mg/dL) Urine Leukocyte Esterase Small (NEG) Urine RBC 1-2 /HPF (0-2) Urine WBC 5-10 /HPF (0-4) Urine Squamous Epithelial Cells Many /LPF Urine Bacteria Many /HPF (0-FEW) Urine Mucus Marked /LPF White Blood Count 14.0 x10^3/uL (4.0-11.0) Red Blood Count 3.62 x10^6/uL (3.50-5.40) Hemoglobin 11.5 g/dL (12.0-15.5) Hematocrit 33.7 % (36.0-47.0) Mean Corpuscular Volume 93 fL (79-100) Mean Corpuscular Hemoglobin 32 pg (25-35) Mean Corpuscular Hemoglobin Concent 34 g/dL (31-37) Red Cell Distribution Width 11.8 % (11.5-14.5) Platelet Count 249 x10^3/uL (140-400) Neutrophils (%) (Auto) 82 % (31-73) Lymphocytes (%) (Auto) 8 % (24-48) Monocytes (%) (Auto) 10 % (0-9) Eosinophils (%) (Auto) 0 % (0-3) Basophils (%) (Auto) 0 % (0-3) Neutrophils # (Auto) 11.4 x10^3/uL (1.8-7.7) Lymphocytes # (Auto) 1.1 x10^3/uL (1.0-4.8) Monocytes # (Auto) 1.4 x10^3/uL (0.0-1.1) Eosinophils # (Auto) 0.1 x10^3/uL (0.0-0.7) Basophils # (Auto) 0.0 x10^3/uL (0.0-0.2) Sodium Level 137 mmol/L (136-145) Potassium Level 3.4 mmol/L (3.5-5.1) Chloride Level 100 mmol/L (98-107) Carbon Dioxide Level 28 mmol/L (21-32) Anion Gap 9 (6-14) Blood Urea Nitrogen 12 mg/dL (7-20) Creatinine 0.8 mg/dL (0.6-1.0) Estimated GFR (Cockcroft-Gault) 88.9 BUN/Creatinine Ratio 15 (6-20) Glucose Level 107 mg/dL (70-99) Lactic Acid Level 0.8 mmol/L (0.4-2.0) Calcium Level 8.7 mg/dL (8.5-10.1) Magnesium Level 2.1 mg/dL (1.8-2.4) Total Bilirubin 0.5 mg/dL (0.2-1.0) Aspartate Amino Transf (AST/SGOT) 33 U/L (15-37) Alanine Aminotransferase (ALT/SGPT) 37 U/L (14-59) Alkaline Phosphatase 58 U/L (46-116) Total Protein 7.2 g/dL (6.4-8.2) Albumin 3.3 g/dL (3.4-5.0) Albumin/Globulin Ratio 0.8 (1.0-1.7) Bedside Urine HCG, Qualitative Hcg negative (Negative) SARS-CoV-2 Antigen (Rapid) Negative (NEGATIVE) Images: Images CT ABD/PELVIS IMPRESSION: 1. Left perianal abscess as described above. 2. 6 mm solid pulmonary nodule of the right lower lobe extends outside the field -of-view and is not fully imaged. Consider further assessment with outpatient CT chest imaging. 3. Other incidental findings as described above. Assessment/Plan Assessment/Plan Severe sepsis due to left perianal abscess Rectal pain due to Left perianal abscess Incidental 6 mm solid pulmonary nodule of the right lower lobe Hypokalemia Moderate protein malnutrition Admit to medicine for further management Surgery consult for formal I&D Continue IV Zosyn Lovenox for DVT prophylaxis N.p.o. for now, regular diet postoperative Full code Discussed with RN and SW Disposition inpatient management as above Surrogate decision maker is Hlida Cr Justifications for Admission Other Justification Perianal abscess LB WOODS MD Oct 21, 2020 16:35
[2020-10-21 19:00] VITALS: BP 87/59
[2020-10-21 23:00] VITALS: BP 90/54
[2020-10-22] MEDS: PIPERACILLIN/TAZOBACTAM 3.375 GM in IV NORMAL SALINE 50ML 50 ML IV SCH ×4 (00:26→18:00)
[2020-10-22] MEDS: KETOROLAC 15 MG/ML VIAL. IVP SCH ×4 (00:26→18:00)
[2020-10-22 03:00] VITALS: BP 95/54
[2020-10-22] MEDS: oxyCODONE/APAP 5/325 1 TAB TABLET PO PRN ×4 (04:07→22:01)
[2020-10-22 04:27] LABS: BASO % 0 % (0-3); EOS # 0.2 x10^3/uL (0.0-0.7); EOS % 2 % (0-3); HEMATOCRIT 28.3 % (36.0-47.0); HEMOGLOBIN 9.7 g/dL (12.0-15.5); LYMPH # 2.4 x10^3/uL (1.0-4.8); LYMPH % 28 % (24-48); MEAN CORPUSCULAR HEMOGLOBIN 32 pg (25-35); MEAN CORPUSCULAR HGB CONC 34 g/dL (31-37); MEAN CORPUSCULAR VOLUME 94 fL (79-100); MONO # 0.6 x10^3/uL (0.0-1.1); MONO % 8 % (0-9); NEUT # 5.2 x10^3/uL (1.8-7.7); NEUT % 62 % (31-73); PLATELET COUNT 200 x10^3/uL (140-400); RED BLOOD COUNT 3.01 x10^6/uL (3.50-5.40); RED CELL DISTRIBUTION WIDTH 11.8 % (11.5-14.5); WHITE BLOOD COUNT 8.5 x10^3/uL (4.0-11.0)
[2020-10-22 04:43] LABS: CALCIUM 7.5 mg/dL (8.5-10.1); CREATININE 0.8 mg/dL (0.6-1.0); GFR 88.9; MAGNESIUM 1.8 mg/dL (1.8-2.4); PHOSPHORUS 3.6 mg/dL (2.6-4.7); POTASSIUM 3.5 mmol/L (3.5-5.1)
[2020-10-22] MEDS: ONDANSETRON PF 4 MG/2 ML VIAL. IVP PRN ×2 (05:56→09:11)
[2020-10-22] MEDS: IV NORMAL SALINE 1000ML BAG 1,000 ML IV SCH ×2 (06:15→16:15)
[2020-10-22 07:00] VITALS: BP 91/60
--- NOTE | 2020-10-22 10:20 | PDOC ---
MARII BLANCO FELL CUTTER 10/22/20 1020: SURGICAL PROGRESS NOTE DATE: 10/22/20 TIME: 10:19 Subjective feels better, can sit now Vital Signs Vital Signs Date Time Temp Pulse Resp B/P (MAP) Pulse Ox O2 Delivery O2 Flow Rate FiO2 10/22/20 10:10 Room Air 10/22/20 07:00 98.0 64 17 91/60 (70) 94 10.0 98.0 I&O Intake and Output 10/22/20 07:00 Intake Total 2300 ml Output Total 10 ml Balance 2290 ml Intake Oral 400 ml IV Total 1900 ml Output Estimated Blood Loss 10 ml # Voids 2 General: Alert, Oriented X3, Cooperative Skin: Other (dressing in place) Labs Laboratory Tests Test 10/21/20 04:30 10/21/20 04:33 10/21/20 04:39 10/21/20 07:05 Urine Collection Type Void Urine Color Yellow Urine Clarity Cloudy Urine pH 6.0 (<5.0-8.0) Urine Specific [place] 1.025 (1.000-1.030) Urine Protein Negative mg/dL (NEG-TRACE) Urine Glucose (UA) Negative mg/dL (NEG) Urine Ketones (Stick) Trace mg/dL (NEG) Urine Blood Negative (NEG) Urine Nitrite Negative (NEG) Urine Bilirubin Negative (NEG) Urine Urobilinogen Dipstick 0.2 mg/dL (0.2 mg/dL) Urine Leukocyte Esterase Small (NEG) Urine RBC 1-2 /HPF (0-2) Urine WBC 5-10 /HPF (0-4) Urine Squamous Epithelial Cells Many /LPF Urine Bacteria Many /HPF (0-FEW) Urine Mucus Marked /LPF White Blood Count 14.0 x10^3/uL (4.0-11.0) Red Blood Count 3.62 x10^6/uL (3.50-5.40) Hemoglobin 11.5 g/dL (12.0-15.5) Hematocrit 33.7 % (36.0-47.0) Mean Corpuscular Volume 93 fL (79-100) Mean Corpuscular Hemoglobin 32 pg (25-35) Mean Corpuscular Hemoglobin Concent 34 g/dL (31-37) Red Cell Distribution Width 11.8 % (11.5-14.5) Platelet Count 249 x10^3/uL (140-400) Neutrophils (%) (Auto) 82 % (31-73) Lymphocytes (%) (Auto) 8 % (24-48) Monocytes (%) (Auto) 10 % (0-9) Eosinophils (%) (Auto) 0 % (0-3) Basophils (%) (Auto) 0 % (0-3) Neutrophils # (Auto) 11.4 x10^3/uL (1.8-7.7) Lymphocytes # (Auto) 1.1 x10^3/uL (1.0-4.8) Monocytes # (Auto) 1.4 x10^3/uL (0.0-1.1) Eosinophils # (Auto) 0.1 x10^3/uL (0.0-0.7) Basophils # (Auto) 0.0 x10^3/uL (0.0-0.2) Sodium Level 137 mmol/L (136-145) Potassium Level 3.4 mmol/L (3.5-5.1) Chloride Level 100 mmol/L (98-107) Carbon Dioxide Level 28 mmol/L (21-32) Anion Gap 9 (6-14) Blood Urea Nitrogen 12 mg/dL (7-20) Creatinine 0.8 mg/dL (0.6-1.0) Estimated GFR (Cockcroft-Gault) 88.9 BUN/Creatinine Ratio 15 (6-20) Glucose Level 107 mg/dL (70-99) Lactic Acid Level 0.8 mmol/L (0.4-2.0) Calcium Level 8.7 mg/dL (8.5-10.1) Magnesium Level 2.1 mg/dL (1.8-2.4) Total Bilirubin 0.5 mg/dL (0.2-1.0) Aspartate Amino Transf (AST/SGOT) 33 U/L (15-37) Alanine Aminotransferase (ALT/SGPT) 37 U/L (14-59) Alkaline Phosphatase 58 U/L (46-116) Total Protein 7.2 g/dL (6.4-8.2) Albumin 3.3 g/dL (3.4-5.0) Albumin/Globulin Ratio 0.8 (1.0-1.7) Bedside Urine HCG, Qualitative Hcg negative (Negative) SARS-CoV-2 Antigen (Rapid) Negative (NEGATIVE) Test 10/22/20 04:00 White Blood Count 8.5 x10^3/uL (4.0-11.0) Red Blood Count 3.01 x10^6/uL (3.50-5.40) Hemoglobin 9.7 g/dL (12.0-15.5) Hematocrit 28.3 % (36.0-47.0) Mean Corpuscular Volume 94 fL (79-100) Mean Corpuscular Hemoglobin 32 pg (25-35) Mean Corpuscular Hemoglobin Concent 34 g/dL (31-37) Red Cell Distribution Width 11.8 % (11.5-14.5) Platelet Count 200 x10^3/uL (140-400) Neutrophils (%) (Auto) 62 % (31-73) Lymphocytes (%) (Auto) 28 % (24-48) Monocytes (%) (Auto) 8 % (0-9) Eosinophils (%) (Auto) 2 % (0-3) Basophils (%) (Auto) 0 % (0-3) Neutrophils # (Auto) 5.2 x10^3/uL (1.8-7.7) Lymphocytes # (Auto) 2.4 x10^3/uL (1.0-4.8) Monocytes # (Auto) 0.6 x10^3/uL (0.0-1.1) Eosinophils # (Auto) 0.2 x10^3/uL (0.0-0.7) Basophils # (Auto) 0.0 x10^3/uL (0.0-0.2) Sodium Level 141 mmol/L (136-145) Potassium Level 3.5 mmol/L (3.5-5.1) Chloride Level 107 mmol/L (98-107) Carbon Dioxide Level 29 mmol/L (21-32) Anion Gap 5 (6-14) Blood Urea Nitrogen 9 mg/dL (7-20) Creatinine 0.8 mg/dL (0.6-1.0) Estimated GFR (Cockcroft-Gault) 88.9 Glucose Level 103 mg/dL (70-99) Calcium Level 7.5 mg/dL (8.5-10.1) Phosphorus Level 3.6 mg/dL (2.6-4.7) Magnesium Level 1.8 mg/dL (1.8-2.4) Laboratory Tests Test 10/22/20 04:00 White Blood Count 8.5 x10^3/uL (4.0-11.0) Red Blood Count 3.01 x10^6/uL (3.50-5.40) Hemoglobin 9.7 g/dL (12.0-15.5) Hematocrit 28.3 % (36.0-47.0) Mean Corpuscular Volume 94 fL (79-100) Mean Corpuscular Hemoglobin 32 pg (25-35) Mean Corpuscular Hemoglobin Concent 34 g/dL (31-37) Red Cell Distribution Width 11.8 % (11.5-14.5) Platelet Count 200 x10^3/uL (140-400) Neutrophils (%) (Auto) 62 % (31-73) Lymphocytes (%) (Auto) 28 % (24-48) Monocytes (%) (Auto) 8 % (0-9) Eosinophils (%) (Auto) 2 % (0-3) Basophils (%) (Auto) 0 % (0-3) Neutrophils # (Auto) 5.2 x10^3/uL (1.8-7.7) Lymphocytes # (Auto) 2.4 x10^3/uL (1.0-4.8) Monocytes # (Auto) 0.6 x10^3/uL (0.0-1.1) Eosinophils # (Auto) 0.2 x10^3/uL (0.0-0.7) Basophils # (Auto) 0.0 x10^3/uL (0.0-0.2) Sodium Level 141 mmol/L (136-145) Potassium Level 3.5 mmol/L (3.5-5.1) Chloride Level 107 mmol/L (98-107) Carbon Dioxide Level 29 mmol/L (21-32) Anion Gap 5 (6-14) Blood Urea Nitrogen 9 mg/dL (7-20) Creatinine 0.8 mg/dL (0.6-1.0) Estimated GFR (Cockcroft-Gault) 88.9 Glucose Level 103 mg/dL (70-99) Calcium Level 7.5 mg/dL (8.5-10.1) Phosphorus Level 3.6 mg/dL (2.6-4.7) Magnesium Level 1.8 mg/dL (1.8-2.4) Problem List Problems Medical Problems: (1) Failure of outpatient treatment Status: Acute (2) Perirectal abscess Status: Acute Assessment/Plan wound care abx Justicifation of Admission Dx: Justifications for Admission: Justification of Admission Dx: Yes Comments: perirectal abscess KERWIN CANALES MD 10/22/20 1116: SURGICAL PROGRESS NOTE Assessment/Plan Pain is much improved white count normal afebrile. Agree with Gamal assessment plan MARII BLANCO APRN Oct 22, 2020 10:20 KERWIN CANALES MD Oct 22, 2020 11:16
[2020-10-22 11:00] VITALS: BP 109/59
--- NOTE | 2020-10-22 12:04 | PDOC ---
[facility] PROGRESS NOTE Date of Service DOS: DATE: 10/22/20 TIME: 11:59 History of Present Illness History of Present Illness 10/22/2020 Patient was seen and evaluated in exam room. She was accompanied by her boyfriend. Patient was sitting up in bed and feeling better after surgery yesterday. Patient is able to use the restroom. Patients chart was discussed and reviewed with RN and corrections caseworker. Vitals/I&O Vitals/I&O: Vital Signs Date Time Temp Pulse Resp B/P (MAP) Pulse Ox O2 Delivery O2 Flow Rate FiO2 10/22/20 11:00 103 18 109/59 (76) 97 Room Air 10/22/20 10:28 10.0 10/22/20 03:00 97.9 97.9 I & O 10/21/20 10/21/20 10/22/20 15:00 23:00 07:00 Intake Total 1900 ml 400 ml Output Total 10 ml Balance 1890 ml 400 ml Physical Exam General: Alert, Oriented X3, Cooperative Heart: Regular rate, Normal S1, Normal S2 Abdomen: Soft, No tenderness, No hepatosplenomegaly Extremities: No clubbing, No cyanosis Skin: No rashes, Other (dressing in place) Labs Labs: Laboratory Tests Test 10/22/20 04:00 White Blood Count 8.5 x10^3/uL (4.0-11.0) Red Blood Count 3.01 x10^6/uL (3.50-5.40) Hemoglobin 9.7 g/dL (12.0-15.5) Hematocrit 28.3 % (36.0-47.0) Mean Corpuscular Volume 94 fL (79-100) Mean Corpuscular Hemoglobin 32 pg (25-35) Mean Corpuscular Hemoglobin Concent 34 g/dL (31-37) Red Cell Distribution Width 11.8 % (11.5-14.5) Platelet Count 200 x10^3/uL (140-400) Neutrophils (%) (Auto) 62 % (31-73) Lymphocytes (%) (Auto) 28 % (24-48) Monocytes (%) (Auto) 8 % (0-9) Eosinophils (%) (Auto) 2 % (0-3) Basophils (%) (Auto) 0 % (0-3) Neutrophils # (Auto) 5.2 x10^3/uL (1.8-7.7) Lymphocytes # (Auto) 2.4 x10^3/uL (1.0-4.8) Monocytes # (Auto) 0.6 x10^3/uL (0.0-1.1) Eosinophils # (Auto) 0.2 x10^3/uL (0.0-0.7) Basophils # (Auto) 0.0 x10^3/uL (0.0-0.2) Sodium Level 141 mmol/L (136-145) Potassium Level 3.5 mmol/L (3.5-5.1) Chloride Level 107 mmol/L (98-107) Carbon Dioxide Level 29 mmol/L (21-32) Anion Gap 5 (6-14) Blood Urea Nitrogen 9 mg/dL (7-20) Creatinine 0.8 mg/dL (0.6-1.0) Estimated GFR (Cockcroft-Gault) 88.9 Glucose Level 103 mg/dL (70-99) Calcium Level 7.5 mg/dL (8.5-10.1) Phosphorus Level 3.6 mg/dL (2.6-4.7) Magnesium Level 1.8 mg/dL (1.8-2.4) Review of Systems Review of Systems: Patient denies headache. Patient denies numbness in extremities. Patient denies rash. Assessment and Plan Assessmemt and Plan Problems Medical Problems: (1) Failure of outpatient treatment Status: Acute (2) Perirectal abscess Status: Acute Severe sepsis due to left perianal abscess Rectal pain due to Left perianal abscess Incidental 6 mm solid pulmonary nodule of the right lower lobe Hypokalemia Moderate protein malnutrition Plan Continue antibiotics Wound care PRN pain medication Await further surgery input IV Fluids Full code Comment Review of Relevant I have reviewed the following items yesenia (where applicable) has been applied. Medications: Current Medications Medications (Trade) Dose Ordered Sig/Geoff Route PRN Reason Start Time Stop Time Status Last Admin Dose Admin Enoxaparin Sodium (Lovenox 40mg Syringe) 40 mg Q24H SQ 10/21/20 12:00 10/21/20 14:19 Ketorolac Tromethamine (Toradol 15mg Vial) 15 mg Q6HRS IVP 10/21/20 12:00 10/23/20 11:59 10/22/20 05:39 Justifications for Admission Other Justification Perianal abscess RONA HERCULES III DO Oct 22, 2020 12:04
--- NOTE | 2020-10-22 12:06 | PDOC ---
[facility] [facility] PROGRESS NOTE Date of Service DOS: DATE: 10/22/20 TIME: 12:05 History of Present Illness History of Present Illness 10/22/2020 Patient was seen and evaluated in exam room. She was accompanied by her boyfriend. Patient was sitting up in bed and feeling better after surgery yesterday. Patient is able to use the restroom. Patients chart was discussed and reviewed with RN and nurse case management. Vitals/I&O Vitals/I&O: Vital Signs Date Time Temp Pulse Resp B/P (MAP) Pulse Ox O2 Delivery O2 Flow Rate FiO2 10/22/20 11:00 103 18 109/59 (76) 97 Room Air 10/22/20 10:28 10.0 10/22/20 03:00 97.9 97.9 I & O 10/21/20 10/21/20 10/22/20 15:00 23:00 07:00 Intake Total 1900 ml 400 ml Output Total 10 ml Balance 1890 ml 400 ml Physical Exam General: Alert, Oriented X3, Cooperative Heart: Regular rate, Normal S1, Normal S2 Abdomen: Soft, No tenderness, No hepatosplenomegaly Extremities: No clubbing, No cyanosis Skin: No rashes, Other (dressing in place) Labs Labs: Laboratory Tests Test 10/22/20 04:00 White Blood Count 8.5 x10^3/uL (4.0-11.0) Red Blood Count 3.01 x10^6/uL (3.50-5.40) Hemoglobin 9.7 g/dL (12.0-15.5) Hematocrit 28.3 % (36.0-47.0) Mean Corpuscular Volume 94 fL (79-100) Mean Corpuscular Hemoglobin 32 pg (25-35) Mean Corpuscular Hemoglobin Concent 34 g/dL (31-37) Red Cell Distribution Width 11.8 % (11.5-14.5) Platelet Count 200 x10^3/uL (140-400) Neutrophils (%) (Auto) 62 % (31-73) Lymphocytes (%) (Auto) 28 % (24-48) Monocytes (%) (Auto) 8 % (0-9) Eosinophils (%) (Auto) 2 % (0-3) Basophils (%) (Auto) 0 % (0-3) Neutrophils # (Auto) 5.2 x10^3/uL (1.8-7.7) Lymphocytes # (Auto) 2.4 x10^3/uL (1.0-4.8) Monocytes # (Auto) 0.6 x10^3/uL (0.0-1.1) Eosinophils # (Auto) 0.2 x10^3/uL (0.0-0.7) Basophils # (Auto) 0.0 x10^3/uL (0.0-0.2) Sodium Level 141 mmol/L (136-145) Potassium Level 3.5 mmol/L (3.5-5.1) Chloride Level 107 mmol/L (98-107) Carbon Dioxide Level 29 mmol/L (21-32) Anion Gap 5 (6-14) Blood Urea Nitrogen 9 mg/dL (7-20) Creatinine 0.8 mg/dL (0.6-1.0) Estimated GFR (Cockcroft-Gault) 88.9 Glucose Level 103 mg/dL (70-99) Calcium Level 7.5 mg/dL (8.5-10.1) Phosphorus Level 3.6 mg/dL (2.6-4.7) Magnesium Level 1.8 mg/dL (1.8-2.4) Review of Systems Review of Systems: Patient denies headache. Patient denies numbness in extremities. Patient denies rash. Assessment and Plan Assessmemt and Plan Problems Medical Problems: (1) Failure of outpatient treatment Status: Acute (2) Perirectal abscess Status: Acute Assessment Severe sepsis due to left perianal abscess Rectal pain due to Left perianal abscess Incidental 6 mm solid pulmonary nodule of the right lower lobe Hypokalemia Moderate protein malnutrition Plan Continue antibiotics Wound care PRN pain medication Await further surgery input IV Fluids Full code Comment Review of Relevant I have reviewed the following items yesenia (where applicable) has been applied. Justifications for Admission Other Justification Perianal abscess RONA HERCULES III DO Oct 22, 2020 12:06
[2020-10-22] MEDS: LACTOBACILLUS RHAMNOSUS GG 1 CAPSULE. PO SCH ×2 (12:46→21:55)
[2020-10-22] MEDS: ENOXAPARIN 40 MG/0.4 ML SYRINGE. SQ SCH (12:47)
[2020-10-22 15:00] VITALS: BP 98/61
--- NOTE | 2020-10-22 16:17 | NUR ---
pt's peripheral IV started leaking today so had to stop fluids and abx. there was delay on abx and fluids. Florencio Brown RN
--- NOTE | 2020-10-22 16:18 | NUR ---
Wound/Ostomy Care Wound Type/Assessment: wound care consult for help with dressing changes on jennifer-rectal abscess s/p I&D by Dr. Suárez on 10/22. No other wounds noted on head to toe skin assessment. Packing put during surgery removed, pt tolerated procedure well, some induration noted to jennifer wound. Pt inquiring about follow up for help with dressing changes as she is unable to change it herself. Treatment Recommendations/Plan: cleanse wound, pack with 1/4 inch iodoform packing, 4x4 dry gauze between buttock to help relief pressure, cover with abd and tape. Change daily and prn. Education provided: pressure prevention and minimal sitting to help with wound healing Offloading surface/device: pillow, wedges. Pt is independent and able to lay on her stomach Recommended Referrals/Tests: n/a Discharge Recommendations for dressings: same as above. Will follow up with pt about possible outpatient wound care after discharge.
[2020-10-22 19:00] VITALS: BP 99/63
[2020-10-22] MEDS ORDERED: FLUCONAZOLE 100 MG TABLET. PO ONE (19:45)
[2020-10-22 23:00] VITALS: BP 103/63
[2020-10-23] MEDS: KETOROLAC 15 MG/ML VIAL. IVP SCH ×2 (00:02→05:13)
[2020-10-23 03:00] VITALS: BP 93/59
[2020-10-23] MEDS: IV NORMAL SALINE 1000ML BAG 1,000 ML IV SCH ×2 (03:43→12:15)
[2020-10-23] MEDS: oxyCODONE/APAP 5/325 1 TAB TABLET PO PRN ×5 (03:43→21:23)
[2020-10-23] MEDS: PIPERACILLIN/TAZOBACTAM 3.375 GM in IV NORMAL SALINE 50ML 50 ML IV SCH ×4 (05:13→17:55)
[2020-10-23 07:51] VITALS: BP 131/70
[2020-10-23] MEDS: LACTOBACILLUS RHAMNOSUS GG 1 CAPSULE. PO SCH ×2 (08:22→20:52)
--- NOTE | 2020-10-23 10:05 | PDOC ---
MARII BLANCO CONTACT [employer] SUPERVISOR 10/23/20 1005: SURGICAL PROGRESS NOTE DATE: 10/23/20 TIME: 10:04 Subjective wound area sore Vital Signs Vital Signs Date Time Temp Pulse Resp B/P (MAP) Pulse Ox O2 Delivery O2 Flow Rate FiO2 10/23/20 07:51 97.6 88 18 131/70 (90) 98 Room Air 97.6 10/22/20 10:28 10.0 I&O Intake and Output 10/23/20 07:00 Intake Total 450 ml Balance 450 ml Intake Oral 450 ml # Voids 7 # Bowel Movements 1 General: Alert, Oriented X3, Cooperative Skin: Other (wound packed, drainage) Labs Laboratory Tests Test 10/22/20 04:00 White Blood Count 8.5 x10^3/uL (4.0-11.0) Red Blood Count 3.01 x10^6/uL (3.50-5.40) Hemoglobin 9.7 g/dL (12.0-15.5) Hematocrit 28.3 % (36.0-47.0) Mean Corpuscular Volume 94 fL (79-100) Mean Corpuscular Hemoglobin 32 pg (25-35) Mean Corpuscular Hemoglobin Concent 34 g/dL (31-37) Red Cell Distribution Width 11.8 % (11.5-14.5) Platelet Count 200 x10^3/uL (140-400) Neutrophils (%) (Auto) 62 % (31-73) Lymphocytes (%) (Auto) 28 % (24-48) Monocytes (%) (Auto) 8 % (0-9) Eosinophils (%) (Auto) 2 % (0-3) Basophils (%) (Auto) 0 % (0-3) Neutrophils # (Auto) 5.2 x10^3/uL (1.8-7.7) Lymphocytes # (Auto) 2.4 x10^3/uL (1.0-4.8) Monocytes # (Auto) 0.6 x10^3/uL (0.0-1.1) Eosinophils # (Auto) 0.2 x10^3/uL (0.0-0.7) Basophils # (Auto) 0.0 x10^3/uL (0.0-0.2) Sodium Level 141 mmol/L (136-145) Potassium Level 3.5 mmol/L (3.5-5.1) Chloride Level 107 mmol/L (98-107) Carbon Dioxide Level 29 mmol/L (21-32) Anion Gap 5 (6-14) Blood Urea Nitrogen 9 mg/dL (7-20) Creatinine 0.8 mg/dL (0.6-1.0) Estimated GFR (Cockcroft-Gault) 88.9 Glucose Level 103 mg/dL (70-99) Calcium Level 7.5 mg/dL (8.5-10.1) Phosphorus Level 3.6 mg/dL (2.6-4.7) Magnesium Level 1.8 mg/dL (1.8-2.4) Problem List Problems Medical Problems: (1) Failure of outpatient treatment Status: Acute (2) Perirectal abscess Status: Acute Assessment/Plan can dc home, wound care daily Justicifation of Admission Dx: Justifications for Admission: Justification of Admission Dx: Yes KERWIN CANALES MD 10/23/20 1110: SURGICAL PROGRESS NOTE Assessment/Plan Agree with [place]' assessment and plan. MARII BLANCO APRN Oct 23, 2020 10:05 KERWIN CANALES MD Oct 23, 2020 11:10
--- NOTE | 2020-10-23 11:25 | PDOC ---
[facility] PROGRESS NOTE Date of Service DOS: DATE: 10/23/20 TIME: 11:22 History of Present Illness History of Present Illness 10/22/2020 Patient was seen and evaluated in exam room. She was accompanied by her boyfriend. Patient was sitting up in bed and feeling better after surgery yesterday. Patient is able to use the restroom. Patients chart was discussed and reviewed with RN and rehabilitation caseworker. 10/23/2020 Patient is seen and examined room. Patient 's wound is checked with nurse She complains of pain at the anal region Patient 's case is discussed with RN and rehabilitation caseworker Patient 's chart is reviewed. Vitals/I&O Vitals/I&O: Vital Signs Date Time Temp Pulse Resp B/P (MAP) Pulse Ox O2 Delivery O2 Flow Rate FiO2 10/23/20 07:51 97.6 88 18 131/70 (90) 98 Room Air 97.6 10/22/20 10:28 10.0 I & O 10/22/20 10/22/20 10/23/20 15:00 23:00 07:00 Intake Total 250 ml 200 ml Balance 250 ml 200 ml Physical Exam General: Alert, Oriented X3, Cooperative Heart: Regular rate, Normal S1, Normal S2 Abdomen: Soft, No tenderness, No hepatosplenomegaly Extremities: No clubbing, No cyanosis Skin: Other (wound packed, drainage. No erythma ) Review of Systems Review of Systems: Patient complains of anal pain Patient denies headache, dizziness Patient denies nausea or vomiting. Assessment and Plan Assessmemt and Plan Problems Medical Problems: (1) Failure of outpatient treatment Status: Acute (2) Perirectal abscess Status: Acute Assessment: Severe sepsis due to left perianal abscess Rectal pain due to Left perianal abscess Incidental 6 mm solid pulmonary nodule of the right lower lobe Hypokalemia Moderate protein malnutrition Plan: Continue IV antibiotic Follow up with wound care team Pain management DVT prophylaxis PT/OT Appreciated subspecialty input Full code. Comment Review of Relevant I have reviewed the following items yesenia (where applicable) has been applied. Medications: Current Medications Medications (Trade) Dose Ordered Sig/Geoff Route PRN Reason Start Time Stop Time Status Last Admin Dose Admin Lactobacillus Rhamnosus (Culturelle) 1 cap BID PO 10/22/20 12:00 10/23/20 08:22 Fluconazole (Diflucan) 150 mg 1X ONCE PO 10/22/20 19:45 10/22/20 19:46 DC 10/22/20 21:55 Justifications for Admission Other Justification Perianal abscess RONA HERCULES III DO Oct 23, 2020 11:25
[2020-10-23 11:55] VITALS: BP 123/61
[2020-10-23] MEDS: ENOXAPARIN 40 MG/0.4 ML SYRINGE. SQ SCH (12:00)
[2020-10-23 13:18] LABS: ALBUMIN 2.5 g/dL (3.4-5.0); ALBUMIN/GLOBULIN RATIO 0.7 (1.0-1.7); CALCIUM 7.3 mg/dL (8.5-10.1); CREATININE 0.8 mg/dL (0.6-1.0); GFR 88.9; POTASSIUM 3.3 mmol/L (3.5-5.1); TOTAL BILIRUBIN 0.1 mg/dL (0.2-1.0); TOTAL PROTEIN 5.9 g/dL (6.4-8.2)
[2020-10-23 15:53] VITALS: BP 108/61
[2020-10-23 19:00] VITALS: BP 118/76
[2020-10-23] MEDS: ONDANSETRON PF 4 MG/2 ML VIAL. IVP PRN (21:22)
[2020-10-23 23:00] VITALS: BP 118/70
[2020-10-24] MEDS: ONDANSETRON PF 4 MG/2 ML VIAL. IVP PRN ×2 (00:11→21:54)
[2020-10-24] MEDS: PIPERACILLIN/TAZOBACTAM 3.375 GM in IV NORMAL SALINE 50ML 50 ML IV SCH ×2 (00:12→05:14)
[2020-10-24] MEDS ORDERED: ONDANSETRON PF 4 MG/2 ML VIAL. IM ONE (00:15)
[2020-10-24 03:00] VITALS: BP 108/72
[2020-10-24] MEDS: oxyCODONE/APAP 5/325 1 TAB TABLET PO PRN ×4 (05:14→21:53)
[2020-10-24 07:00] VITALS: BP 106/66
[2020-10-24 07:17] LABS: BASO % 1 % (0-3); EOS # 0.2 x10^3/uL (0.0-0.7); EOS % 3 % (0-3); HEMATOCRIT 29.3 % (36.0-47.0); HEMOGLOBIN 10.1 g/dL (12.0-15.5); LYMPH # 1.7 x10^3/uL (1.0-4.8); LYMPH % 35 % (24-48); MEAN CORPUSCULAR HEMOGLOBIN 32 pg (25-35); MEAN CORPUSCULAR HGB CONC 34 g/dL (31-37); MEAN CORPUSCULAR VOLUME 94 fL (79-100); MONO # 0.4 x10^3/uL (0.0-1.1); MONO % 8 % (0-9); NEUT # 2.7 x10^3/uL (1.8-7.7); NEUT % 54 % (31-73); PLATELET COUNT 260 x10^3/uL (140-400); RED BLOOD COUNT 3.13 x10^6/uL (3.50-5.40); RED CELL DISTRIBUTION WIDTH 11.7 % (11.5-14.5)
[2020-10-24] MEDS: LACTOBACILLUS RHAMNOSUS GG 1 CAPSULE. PO SCH ×2 (08:10→21:53)
[2020-10-24 10:52] VITALS: BP 119/64
[2020-10-24] MEDS: ENOXAPARIN 40 MG/0.4 ML SYRINGE. SQ SCH (11:24)
[2020-10-24] MEDS: AMOXICILLIN/K CLAV 875/125MG TABLET. PO SCH ×2 (11:58→21:54)
[2020-10-24 15:00] VITALS: BP 108/73
--- NOTE | 2020-10-24 16:51 | PDOC ---
PROGRESS NOTES Date of Service: DATE: 10/24/20 TIME: 16:49 Chief Complaint Chief Complaint Assessment Severe sepsis due to left perianal abscess Rectal pain due to Left perianal abscess Incidental 6 mm solid pulmonary nodule of the right lower lobe Hypokalemia Moderate protein malnutrition Plan Continue antibiotics Wound care PRN pain medication We will switch to oral antibiotic in anticipation for discharge in the a.m. IV Fluids Full code History of Present Illness History of Present Illness 10/22/2020 Patient was seen and evaluated in exam room. She was accompanied by her boyfriend. Patient was sitting up in bed and feeling better after surgery yesterday. Patient is able to use the restroom. Patients chart was discussed and reviewed with RN and case packer. 10/23/2020 Patient is seen and examined room. Patient 's wound is checked with nurse She complains of pain at the anal region Patient 's case is discussed with RN and case packer Patient 's chart is reviewed. 10/24/2020 No acute events reported overnight, case discussed with nursing staff patient in no acute distress no complaints during my visit Vitals Vitals Vital Signs Date Time Temp Pulse Resp B/P (MAP) Pulse Ox O2 Delivery O2 Flow Rate FiO2 10/24/20 15:00 98.0 79 20 108/73 (85) 100 98.0 10/24/20 07:00 Room Air Physical Exam General: Alert, Oriented X3, Cooperative Heart: Regular rate, Normal S1, Normal S2 Abdomen: Soft, No tenderness, No hepatosplenomegaly Extremities: No clubbing, No cyanosis Skin: Other (wound packed, drainage. No erythma ) Labs LABS Laboratory Tests Test 10/24/20 06:40 White Blood Count 5.0 x10^3/uL (4.0-11.0) Red Blood Count 3.13 x10^6/uL (3.50-5.40) Hemoglobin 10.1 g/dL (12.0-15.5) Hematocrit 29.3 % (36.0-47.0) Mean Corpuscular Volume 94 fL (79-100) Mean Corpuscular Hemoglobin 32 pg (25-35) Mean Corpuscular Hemoglobin Concent 34 g/dL (31-37) Red Cell Distribution Width 11.7 % (11.5-14.5) Platelet Count 260 x10^3/uL (140-400) Neutrophils (%) (Auto) 54 % (31-73) Lymphocytes (%) (Auto) 35 % (24-48) Monocytes (%) (Auto) 8 % (0-9) Eosinophils (%) (Auto) 3 % (0-3) Basophils (%) (Auto) 1 % (0-3) Neutrophils # (Auto) 2.7 x10^3/uL (1.8-7.7) Lymphocytes # (Auto) 1.7 x10^3/uL (1.0-4.8) Monocytes # (Auto) 0.4 x10^3/uL (0.0-1.1) Eosinophils # (Auto) 0.2 x10^3/uL (0.0-0.7) Basophils # (Auto) 0.0 x10^3/uL (0.0-0.2) Assessment and Plan Assessmemt and Plan Problems Medical Problems: (1) Failure of outpatient treatment Status: Acute (2) Perirectal abscess Status: Acute Comment Review of Relevant I have reviewed the following items yesenia (where applicable) has been applied. Labs Laboratory Tests Test 10/23/20 12:30 10/24/20 06:40 Sodium Level 138 mmol/L (136-145) Potassium Level 3.3 mmol/L (3.5-5.1) Chloride Level 102 mmol/L (98-107) Carbon Dioxide Level 30 mmol/L (21-32) Anion Gap 6 (6-14) Blood Urea Nitrogen 4 mg/dL (7-20) Creatinine 0.8 mg/dL (0.6-1.0) Estimated GFR (Cockcroft-Gault) 88.9 BUN/Creatinine Ratio 5 (6-20) Glucose Level 127 mg/dL (70-99) Calcium Level 7.3 mg/dL (8.5-10.1) Total Bilirubin 0.1 mg/dL (0.2-1.0) Aspartate Amino Transf (AST/SGOT) 23 U/L (15-37) Alanine Aminotransferase (ALT/SGPT) 32 U/L (14-59) Alkaline Phosphatase 48 U/L (46-116) Total Protein 5.9 g/dL (6.4-8.2) Albumin 2.5 g/dL (3.4-5.0) Albumin/Globulin Ratio 0.7 (1.0-1.7) White Blood Count 5.0 x10^3/uL (4.0-11.0) Red Blood Count 3.13 x10^6/uL (3.50-5.40) Hemoglobin 10.1 g/dL (12.0-15.5) Hematocrit 29.3 % (36.0-47.0) Mean Corpuscular Volume 94 fL (79-100) Mean Corpuscular Hemoglobin 32 pg (25-35) Mean Corpuscular Hemoglobin Concent 34 g/dL (31-37) Red Cell Distribution Width 11.7 % (11.5-14.5) Platelet Count 260 x10^3/uL (140-400) Neutrophils (%) (Auto) 54 % (31-73) Lymphocytes (%) (Auto) 35 % (24-48) Monocytes (%) (Auto) 8 % (0-9) Eosinophils (%) (Auto) 3 % (0-3) Basophils (%) (Auto) 1 % (0-3) Neutrophils # (Auto) 2.7 x10^3/uL (1.8-7.7) Lymphocytes # (Auto) 1.7 x10^3/uL (1.0-4.8) Monocytes # (Auto) 0.4 x10^3/uL (0.0-1.1) Eosinophils # (Auto) 0.2 x10^3/uL (0.0-0.7) Basophils # (Auto) 0.0 x10^3/uL (0.0-0.2) Laboratory Tests Test 10/24/20 06:40 White Blood Count 5.0 x10^3/uL (4.0-11.0) Red Blood Count 3.13 x10^6/uL (3.50-5.40) Hemoglobin 10.1 g/dL (12.0-15.5) Hematocrit 29.3 % (36.0-47.0) Mean Corpuscular Volume 94 fL (79-100) Mean Corpuscular Hemoglobin 32 pg (25-35) Mean Corpuscular Hemoglobin Concent 34 g/dL (31-37) Red Cell Distribution Width 11.7 % (11.5-14.5) Platelet Count 260 x10^3/uL (140-400) Neutrophils (%) (Auto) 54 % (31-73) Lymphocytes (%) (Auto) 35 % (24-48) Monocytes (%) (Auto) 8 % (0-9) Eosinophils (%) (Auto) 3 % (0-3) Basophils (%) (Auto) 1 % (0-3) Neutrophils # (Auto) 2.7 x10^3/uL (1.8-7.7) Lymphocytes # (Auto) 1.7 x10^3/uL (1.0-4.8) Monocytes # (Auto) 0.4 x10^3/uL (0.0-1.1) Eosinophils # (Auto) 0.2 x10^3/uL (0.0-0.7) Basophils # (Auto) 0.0 x10^3/uL (0.0-0.2) Microbiology 10/21/20 Gram Stain - Final, Resulted 10/21/20 Aerobic and Anaerobic Culture - Preliminary, Resulted 10/21/20 Blood Culture - Preliminary, Resulted NO GROWTH AFTER 3 DAYS 10/21/20 Urine Culture - Final, Complete Medications Current Medications Sodium Chloride 1,000 ml @ 1,000 mls/hr 1X ONCE IV Last administered on 10/21/20at 05:28; Start 10/21/20 at 04:45; Stop 10/21/20 at 05:44; Status DC Ceftriaxone Sodium (Rocephin) 1 gm 1X ONCE IVP Last administered on 10/21/20at 05:31; Start 10/21/20 at 05:00; Stop 10/21/20 at 05:12; Status DC Metronidazole 100 ml @ 100 mls/hr 1X ONCE IV Last administered on 10/21/20at 05:31; Start 10/21/20 at 05:15; Stop 10/21/20 at 06:14; Status DC Ketorolac Tromethamine (Toradol 15mg Vial) 15 mg 1X ONCE IVP Last administered on 10/21/20at 05:28; Start 10/21/20 at 05:15; Stop 10/21/20 at 05:16; Status DC Iohexol (Omnipaque 240 Mg/ml) 30 ml 1X ONCE PO Last administered on 10/21/20at 06:20; Start 10/21/20 at 05:30; Stop 10/21/20 at 05:31; Status DC Iohexol (Omnipaque 300 Mg/ml) 75 ml 1X ONCE IV Last administered on 10/21/20at 06:20; Start 10/21/20 at 05:30; Stop 10/21/20 at 05:31; Status DC Info (CONTRAST GIVEN -- Rx MONITORING) 1 each PRN DAILY PRN MC SEE COMMENTS; Start 10/21/20 at 05:30; Stop 10/23/20 at 05:29; Status DC Fentanyl Citrate (Fentanyl 2ml Vial) 50 mcg 1X ONCE IV Last administered on 10/21/20at 07:03; Start 10/21/20 at 06:45; Stop 10/21/20 at 06:46; Status DC Piperacillin Sod/ Tazobactam Sod (Zosyn Per Pharmacy) 1 each PRN DAILY PRN MC SEE COMMENTS; Start 10/21/20 at 07:30; Stop 10/24/20 at 11:44; Status DC Piperacillin Sod/ Tazobactam Sod 3.375 gm/Sodium Chloride 50 ml @ 100 mls/hr Q6HRS IV Last administered on 10/24/20at 05:14; Start 10/21/20 at 08:00; Stop 10/24/20 at 11:43; Status DC Fentanyl Citrate (Fentanyl 2ml Vial) 25 mcg PRN Q5MIN PRN IVP MILD PAIN 1-3; Start 10/21/20 at 10:15; Stop 10/22/20 at 10:14; Status DC Fentanyl Citrate (Fentanyl 2ml Vial) 50 mcg PRN Q5MIN PRN IVP MODERATE PAIN 4-6 Last administered on 10/21/20at 12:53; Start 10/21/20 at 10:15; Stop 10/22/20 at 10:14; Status DC Morphine Sulfate (Morphine Sulfate) 1 mg PRN Q10MIN PRN IVP SEVERE PAIN 7-10; Start 10/21/20 at 10:15; Stop 10/22/20 at 10:14; Status DC Ringer's Solution 1,000 ml @ 30 mls/hr Q24H IV Last administered on 10/21/20at 10:40; Start 10/21/20 at 10:15; Stop 10/21/20 at 22:14; Status DC Hydromorphone HCl (Dilaudid) 0.5 mg PRN Q10MIN PRN IVP SEVERE PAIN 7-10, 2nd CHOICE; Start 10/21/20 at 10:15; Stop 10/22/20 at 10:14; Status DC Prochlorperazine Edisylate (Compazine) 5 mg PACU PRN PRN IVP NAUSEA, MRX1; Start 10/21/20 at 10:15; Stop 10/22/20 at 10:14; Status DC Sennosides (Senna) 17.2 mg PRN BID PRN PO CONSTIPATION Last administered on 10/24/20at 15:25; Start 10/21/20 at 10:15 Docusate Sodium (Colace) 100 mg PRN DAILY PRN PO HARD STOOLS; Start 10/21/20 at 10:15 Ondansetron HCl (Zofran) 4 mg PRN Q6HRS PRN IVP NAUSEA/VOMITING Last admin istered on 10/23/20at 21:22; Start 10/21/20 at 10:15; Stop 10/24/20 at 00:08; Status DC Dextrose (Dextrose 50%-Water Syringe) 12.5 gm PRN Q15MIN PRN IV SEE COMMENTS; Start 10/21/20 at 10:15 Sodium Chloride 1,000 ml @ 100 mls/hr Q10H IV Last administered on 10/23/20at 12:15; Start 10/21/20 at 10:15; Stop 10/23/20 at 20:38; Status DC Acetaminophen (Tylenol) 650 mg PRN Q4HRS PRN PO TEMP OVER 100.4F OR MILD PAIN; Start 10/21/20 at 10:15 Enoxaparin Sodium (Lovenox 40mg Syringe) 40 mg Q24H SQ Last administered on 10/24/20at 11:24; Start 10/21/20 at 12:00 Morphine Sulfate (Morphine Sulfate) 1 mg PRN Q1HR PRN IV PAIN Last administered on 10/22/20at 14:10; Start 10/21/20 at 10:15 Morphine Sulfate (Morphine Sulfate) 2 mg PRN Q2HR PRN IV SEVERE PAIN 7-10 Last administered on 10/21/20at 16:39; Start 10/21/20 at 04:00; Stop 10/22/20 at 03:59; Status DC Fentanyl Citrate (Fentanyl 2ml Vial) 100 mcg STK-MED ONCE .ROUTE ; Start 10/21/20 at 10:40; Stop 10/21/20 at 10:41; Status DC Fentanyl Citrate (Fentanyl 2ml Vial) 50 mcg PACU PRN PRN IVP PAIN Last administered on 10/21/20at 10:58; Start 10/21/20 at 10:45; Stop 10/22/20 at 14:26; Status DC Bupivacaine HCl/ Epinephrine Bitart (Sensorcain-Epi 0.5% Kit) 30 ml STK-MED ONCE .ROUTE Last administered on 10/21/20at 11:27; Start 10/21/20 at 11:05; Stop 10/21/20 at 11:06; Status DC Propofol (Diprivan) 200 mg STK-MED ONCE IV ; Start 10/21/20 at 11:24; Stop 10/21/20 at 11:24; Status DC Lidocaine HCl (Lidocaine Pf 2% Vial) 5 ml STK-MED ONCE .ROUTE ; Start 10/21/20 at 11:24; Stop 10/21/20 at 11:24; Status DC Ondansetron HCl (Zofran) 4 mg STK-MED ONCE .ROUTE ; Start 10/21/20 at 11:24; Stop 10/21/20 at 11:24; Status DC Dexamethasone Sodium Phosphate (Decadron) 4 mg STK-MED ONCE .ROUTE ; Start 10/21/20 at 11:24; Stop 10/21/20 at 11:24; Status DC Fentanyl Citrate (Fentanyl 2ml Vial) 100 mcg STK-MED ONCE .ROUTE ; Start 10/21/20 at 11:24; Stop 10/21/20 at 11:25; Status DC Ketorolac Tromethamine (Toradol 30mg Vial) 30 mg STK-MED ONCE .ROUTE ; Start 10/21/20 at 11:24; Stop 10/21/20 at 11:25; Status DC Oxycodone/ Acetaminophen (Percocet 5/325) 1 tab PRN Q4HRS PRN PO MODERATE PAIN Last administered on 10/22/20at 10:28; Start 10/21/20 at 11:45 Oxycodone/ Acetaminophen (Percocet 5/325) 2 tab PRN Q4HRS PRN PO SEVERE PAIN Last administered on 10/24/20at 15:26; Start 10/21/20 at 11:45 Ketorolac Tromethamine (Toradol 15mg Vial) 15 mg Q6HRS IVP Last administered on 10/23/20at 05:13; Start 10/21/20 at 12:00; Stop 10/23/20 at 11:59; Status DC Sevoflurane (Ultane) 30 ml STK-MED ONCE IH ; Start 10/21/20 at 11:49; Stop 10/21/20 at 11:50; Status DC Fentanyl Citrate (Fentanyl 2ml Vial) 100 mcg STK-MED ONCE .ROUTE ; Start at 12:08; Stop 10/21/20 at 12:08; Status DC Fentanyl Citrate (Fentanyl 2ml Vial) 100 mcg STK-MED ONCE .ROUTE ; Start 1 at 12:50; Stop 10/21/20 at 12:51; Status DC Lactobacillus Rhamnosus (Culturelle) 1 cap BID PO Last administered on 10/24/20at 08:10; Start 10/22/20 at 12:00 Fluconazole (Diflucan) 150 mg 1X ONCE PO Last administered on 10/22/20at 21:55; Start 10/22/20 at 19:45; Stop 10/22/20 at 19:46; Status DC Ondansetron HCl (Zofran) 4 mg 1X ONCE IM ; Start 10/24/20 at 00:15; Stop 10/24/20 at 00:17; Status DC Ondansetron HCl (Zofran) 8 mg PRN Q6HRS PRN IVP NAUSEA/VOMITING 1ST CHOICE Last administered on 10/24/20at 00:11; Start 10/24/20 at 00:15 Amoxicillin/ Clavulanate Potassium (Augmentin 875/ 125mg) 1 tab BID PO Last administered on 10/24/20at 11:58; Start 10/24/20 at 12:00 Active Scripts Active Reported [Thyroid Medicine ] Fluoxetine Dr (Fluoxetine Hcl) 90 Mg Capsule.dr 1 Cap PO WEEKLY 28 Days Vyvanse (Lisdexamfetamine Dimesylate) 30 Mg Capsule 1 Cap PO DAILYWBKFT MDD 1 Capsule(s) 5 Days Vitals/I & O Vital Sign - Last 24 Hours 10/23/20 10/23/20 10/23/20 10/23/20 19:00 20:00 21:23 22:23 Temp 98.0 98.0 Pulse 82 Resp 16 18 17 B/P (MAP) 118/76 (90) Pulse Ox 93 O2 Delivery Room Air Room Air Room Air Room Air 10/23/20 10/24/20 10/24/20 10/24/20 23:00 03:00 05:14 06:14 Temp 97.7 98.2 97.7 98.2 Pulse 73 90 Resp 16 18 18 18 B/P (MAP) 118/70 (86) 108/72 (84) O2 Delivery Room Air Room Air Room Air Room Air 10/24/20 10/24/20 10/24/20 07:00 10:52 15:00 Temp 98.0 98.1 98.0 98.0 98.1 98.0 Pulse 77 74 79 Resp 18 18 20 B/P (MAP) 106/66 (79) 119/64 (82) 108/73 (85) Pulse Ox 100 100 100 O2 Delivery Room Air Intake and Output 10/23/20 10/23/20 10/24/20 15:00 23:00 07:00 Intake Total 320 ml 400 ml Output Total 200 ml 100 ml Balance 320 ml 200 ml -100 ml Justicifation of Admission Dx: Justifications for Admission: Justification of Admission Dx: Yes BRIAN PHILLIP MD Oct 24, 2020 16:51
[2020-10-24 19:00] VITALS: BP 111/70
[2020-10-24 23:00] VITALS: BP 103/57
[2020-10-25 03:00] VITALS: BP 97/59
[2020-10-25 07:00] VITALS: BP 110/51
[2020-10-25 07:45] LABS: BASO % 1 % (0-3); EOS # 0.3 x10^3/uL (0.0-0.7); EOS % 5 % (0-3); HEMATOCRIT 31.6 % (36.0-47.0); LYMPH # 2.1 x10^3/uL (1.0-4.8); LYMPH % 41 % (24-48); MEAN CORPUSCULAR HEMOGLOBIN 32 pg (25-35); MEAN CORPUSCULAR HGB CONC 35 g/dL (31-37); MEAN CORPUSCULAR VOLUME 93 fL (79-100); MONO # 0.5 x10^3/uL (0.0-1.1); MONO % 9 % (0-9); NEUT # 2.3 x10^3/uL (1.8-7.7); NEUT % 44 % (31-73); PLATELET COUNT 294 x10^3/uL (140-400); RED BLOOD COUNT 3.39 x10^6/uL (3.50-5.40); RED CELL DISTRIBUTION WIDTH 11.9 % (11.5-14.5); WHITE BLOOD COUNT 5.2 x10^3/uL (4.0-11.0)
[2020-10-25] MEDS: LACTOBACILLUS RHAMNOSUS GG 1 CAPSULE. PO SCH (09:17)
[2020-10-25] MEDS: oxyCODONE/APAP 5/325 1 TAB TABLET PO PRN (09:17)
[2020-10-25] MEDS: AMOXICILLIN/K CLAV 875/125MG TABLET. PO SCH (09:17)
[2020-10-25] MEDS ORDERED: ACET325T21 PO (09:37)
[2020-10-25] MEDS ORDERED: FLUC150T PO (09:37)
[2020-10-25] MEDS ORDERED: ONDA4TAB12 PO (09:37)
[2020-10-25] MEDS ORDERED: AMOX1TAB11 PO (09:37)
[2020-10-25] MEDS ORDERED: LACT1CAP19 PO (09:37)
[2020-10-25 11:00] VITALS: BP 118/79
--- NOTE | 2020-10-25 11:13 | PDOC3 ---
Discharge Summary Visit Information Date of Admission: Oct 21, 2020 Date of Discharge: Oct 25, 2020 Admitting Diagnosis Comment: Severe sepsis due to left perianal abscess Rectal pain due to Left perianal abscess Incidental 6 mm solid pulmonary nodule of the right lower lobe Hypokalemia Moderate protein malnutrition Final Diagnosis Problems Medical Problems: (1) Failure of outpatient treatment Status: Acute (2) Perirectal abscess Status: Acute Severe sepsis due to left perianal abscess resolved Rectal pain due to Left perianal abscess improved Incidental 6 mm solid pulmonary nodule of the right lower lobe Hypokalemia Moderate protein malnutrition Brief Hospital Course Allergies Allergies Coded Allergies Type Severity Reaction Last Updated Verified oseltamivir Allergy Intermediate 10/21/20 Yes Vital Signs Vital Signs Date Time Temp Pulse Resp B/P (MAP) Pulse Ox O2 Delivery O2 Flow Rate FiO2 10/25/20 09:17 Room Air 10/25/20 07:00 98.0 78 16 110/51 (70) 100 98.0 10/24/20 23:00 10.0 Lab Results Laboratory Tests Test 10/23/20 12:30 10/24/20 06:40 10/25/20 06:00 Sodium Level 138 mmol/L (136-145) Potassium Level 3.3 mmol/L (3.5-5.1) Chloride Level 102 mmol/L (98-107) Carbon Dioxide Level 30 mmol/L (21-32) Anion Gap 6 (6-14) Blood Urea Nitrogen 4 mg/dL (7-20) Creatinine 0.8 mg/dL (0.6-1.0) Estimated GFR (Cockcroft-Gault) 88.9 BUN/Creatinine Ratio 5 (6-20) Glucose Level 127 mg/dL (70-99) Calcium Level 7.3 mg/dL (8.5-10.1) Total Bilirubin 0.1 mg/dL (0.2-1.0) Aspartate Amino Transf (AST/SGOT) 23 U/L (15-37) Alanine Aminotransferase (ALT/SGPT) 32 U/L (14-59) Alkaline Phosphatase 48 U/L (46-116) Total Protein 5.9 g/dL (6.4-8.2) Albumin 2.5 g/dL (3.4-5.0) Albumin/Globulin Ratio 0.7 (1.0-1.7) White Blood Count 5.0 x10^3/uL (4.0-11.0) 5.2 x10^3/uL (4.0-11.0) Red Blood Count 3.13 x10^6/uL (3.50-5.40) 3.39 x10^6/uL (3.50-5.40) Hemoglobin 10.1 g/dL (12.0-15.5) 11.0 g/dL (12.0-15.5) Hematocrit 29.3 % (36.0-47.0) 31.6 % (36.0-47.0) Mean Corpuscular Volume 94 fL (79-100) 93 fL (79-100) Mean Corpuscular Hemoglobin 32 pg (25-35) 32 pg (25-35) Mean Corpuscular Hemoglobin Concent 34 g/dL (31-37) 35 g/dL (31-37) Red Cell Distribution Width 11.7 % (11.5-14.5) 11.9 % (11.5-14.5) Platelet Count 260 x10^3/uL (140-400) 294 x10^3/uL (140-400) Neutrophils (%) (Auto) 54 % (31-73) 44 % (31-73) Lymphocytes (%) (Auto) 35 % (24-48) 41 % (24-48) Monocytes (%) (Auto) 8 % (0-9) 9 % (0-9) Eosinophils (%) (Auto) 3 % (0-3) 5 % (0-3) Basophils (%) (Auto) 1 % (0-3) 1 % (0-3) Neutrophils # (Auto) 2.7 x10^3/uL (1.8-7.7) 2.3 x10^3/uL (1.8-7.7) Lymphocytes # (Auto) 1.7 x10^3/uL (1.0-4.8) 2.1 x10^3/uL (1.0-4.8) Monocytes # (Auto) 0.4 x10^3/uL (0.0-1.1) 0.5 x10^3/uL (0.0-1.1) Eosinophils # (Auto) 0.2 x10^3/uL (0.0-0.7) 0.3 x10^3/uL (0.0-0.7) Basophils # (Auto) 0.0 x10^3/uL (0.0-0.2) 0.0 x10^3/uL (0.0-0.2) Laboratory Tests Test 10/25/20 06:00 White Blood Count 5.2 x10^3/uL (4.0-11.0) Red Blood Count 3.39 x10^6/uL (3.50-5.40) Hemoglobin 11.0 g/dL (12.0-15.5) Hematocrit 31.6 % (36.0-47.0) Mean Corpuscular Volume 93 fL (79-100) Mean Corpuscular Hemoglobin 32 pg (25-35) Mean Corpuscular Hemoglobin Concent 35 g/dL (31-37) Red Cell Distribution Width 11.9 % (11.5-14.5) Platelet Count 294 x10^3/uL (140-400) Neutrophils (%) (Auto) 44 % (31-73) Lymphocytes (%) (Auto) 41 % (24-48) Monocytes (%) (Auto) 9 % (0-9) Eosinophils (%) (Auto) 5 % (0-3) Basophils (%) (Auto) 1 % (0-3) Neutrophils # (Auto) 2.3 x10^3/uL (1.8-7.7) Lymphocytes # (Auto) 2.1 x10^3/uL (1.0-4.8) Monocytes # (Auto) 0.5 x10^3/uL (0.0-1.1) Eosinophils # (Auto) 0.3 x10^3/uL (0.0-0.7) Basophils # (Auto) 0.0 x10^3/uL (0.0-0.2) Brief Hospital Course HPI: 25 year old female presents with report of painful swelling and redness to left buttocks near her rectum that has been ongoing for the past several days. Patient reports was seen yesterday afternoon at [facility] urgent care and started on Augmentin and pain medication. Patient reports she is unsure if she had any fever however her temperature has only gotten up to 99 degrees. Patient has also been taking ibuprofen and Tylenol. Denies prior history of perirectal abscesses. Denies . Patient reports history of IUD. Denies diabetes. Operative Note Date: October 212020 at 1141 Preoperative diagnosis: Perirectal abscess Postoperative diagnosis: Same Procedure: Incision and drainage of perirectal abscess Specimen: Cultures Surgeon: Jose Armando Dictation: Patient is 25-year-old female was mated to the hospital with left gluteal pain for several days she did receive a IM injection of penicillin at urgent care but has had no relief. CT scan shows a 5 cm abscess in the perirectal space on the left side. The procedure of incision and drainage of perirectal abscess was explained to the patient detail risk benefits were also discussed including bleeding infection alternatives to this procedure also discussed with patient who seemed to understand and gave both verbal and written consent to have the procedure performed. Patient was taken to the operating room placed in the supine position general anesthesia was initiated once patient was sleeping in bed she placed in lithotomy positioning and her perineum was prepped and draped usual sterile fashion using Betadine scrub and solution. Area of erythema on the left side was injected with quarter percent Marcaine with epinephrine an incision was made with 10 blade scalpel a large amount of purulent material was expressed cultures were taken purulent material was suctioned from the wound. The wound was then irrigated with copious amounts normal saline and suctioned dry hemostasis was controlled with electrocautery. The wound was then packed with half-inch iodoform new gauze. Wound was dressed with 4 x 4's and mesh pants. Patient was awakened and extubated operating room taken recovery in stable condition all sponge instrument needle counts listed as correct estimated blood loss 10 mL 10/22/2020 Patient was seen and evaluated in exam room. She was accompanied by her boyfriend. Patient was sitting up in bed and feeling better after surgery yesterday. Patient is able to use the restroom. Patients chart was discussed and reviewed with RN and bilingual patient support caseworker. 10/23/2020 Patient is seen and examined room. Patient 's wound is checked with nurse She complains of pain at the anal region Patient 's case is discussed with RN and bilingual patient support caseworker Patient 's chart is reviewed. 10/24/2020 No acute events reported overnight, case discussed with nursing staff patient in no acute distress no complaints during my visit 10/25/2020 Patient did not present any new events during her evening. She tolerated her amoxicillin clavulanate well, I have provided her with prescription for 7 more days of antibiotics Diflucan in case of vaginal candidiasis Zofran for nausea. Her pain was well controlled at the time of discharge and she was eating appropriately she was deemed appropriate from the surgical standpoint of view to be discharged with follow-up in the outpatient setting. We will arrange also for home health to continue with packing of her wound daily as recommended by her art sales consultant. All of her concerns were addressed to the best of my abilities. She was advised to follow-up with her primary care physician in follow-up on the incidental 6 mm solid pulmonary nodule in the right lower lobe that was noted on her imaging studies. Symptoms and signs of concern were discussed prior to discharge and she acknowledged understanding of all the instructions Assessment Assessment REASON: left perirectal swelling, eval for perirectal abscess/fistula PROCEDURE: CT ABD PELV W/ORAL&IV CONTRAST IMPRESSION: 1. Left perianal abscess as described above. 2. 6 mm solid pulmonary nodule of the right lower lobe extends outside the [id number] and is not fully imaged. Consider further assessment with outpatient CT chest imaging. 3. Other incidental findings as described above. Discharge Information Condition at Discharge: Improved Follow Up: Weeks Disposition/Orders: D/C to Home w/ HH Scheduled Amoxicillin/Potassium Clav (Amox Tr-K Clv 875-125 Mg Tab) 1 Each Tablet, 1 TAB PO BID for abscess for 7 Days, #14 Prescribed by: BRIAN PHILLIP MD on 10/25/20936 Fluconazole (Diflucan) 150 Mg Tablet, 1 TAB PO ONCE for candidiasis, #1 Ref 1 Prescribed by: BRIAN PHILLIP MD on 10/25/20936 Fluoxetine Hcl (Fluoxetine Dr) 90 Mg Capsule.dr, 1 CAP PO WEEKLY for 28 Days, #4 Ref 0 (Reported) Entered as Reported by: ANDREINA HERMOSILLO on 10/21/20551 Last Action: New Order on 10/21/20551 by ANDREINA HERMOSILLO Lactobacillus Rhamnosus Gg (Culturelle) 1 Each Cap.sprink, 1 CAP PO BID for probiotic for 14 Days, #28 Prescribed by: BRIAN PHILLIP MD on 10/25/2037 Lisdexamfetamine Dimesylate (Vyvanse) 30 Mg Capsule, 1 CAP PO DAILYWBKFT MDD 1 Capsule(s) for 5 Days, #5 Ref 0 (Reported) Entered as Reported by: ANDREINA HERMOSILLO on 10/21/20551 Last Action: New Order on 10/21/20551 by ANDREINA HERMOSILLO Ondansetron (Ondansetron Odt) 4 Mg Tab.rapdis, 1 TAB PO PRN Q6-8HRS for nausea, #30 Prescribed by: BRIAN PHILLIP MD on 10/25/20936 Scheduled PRN Acetaminophen (Acetaminophen) 325 Mg Tablet, 650 MG PO PRN Q4HRS PRN for TEMP OVER 100.4F OR MILD PAIN for 10 Days, #30 Prescribed by: BRIAN PHILLIP MD on 10/25/20936 Miscellaneous Medications [Thyroid Medicine ] , (Reported) Entered as Reported by: ANDREINA HERMOSILLO on 10/21/20552 Last Action: New Order on 10/21/20552 by ANDREINA HERMOSILLO Justicifation of Admission Dx: Justifications for Admission: Justification of Admission Dx: Yes BRIAN PHILLIP MD Oct 25, 2020 11:13
[2020-10-25] MEDS: ENOXAPARIN 40 MG/0.4 ML SYRINGE. SQ SCH (12:00)
--- NOTE | 2020-10-25 12:14 | SNU/HH DC ---
DISCHARGE WITH HOME HEALTH DISCHARGE INFORMATION: Discharge Date: Oct 25, 2020 Final Diagnosis: Problems Medical Problems: (1) Failure of outpatient treatment Status: Acute (2) Perirectal abscess Status: Acute Condition on Discharge: Stable CODE STATUS: Code Status: Full HOME HEALTH: Face to Face: I certify this patient is under my care and that I, or a nurse practitioner or physician's family service assistant working with me, had a face to face encounter that meets the physician face to face encounter requirements with this patient on []. Medical Complications: Other (perirectal abscess) RN For Eval/Treatment: Yes Pt Meets Homebound Status: Other: (daily wound care) POST DISCHARGE ORDERS: Activity Instructions for Disc: No restrictions Weight Bearing Status after Di: No restrictions CERTIFICATION STATEMENT: Certification Statement: Certification Statement: Based on the above finding, I certify that this patient is confined to the home and needs intermittent senior living care, physical therapy and/or speech therapy, or continues to need occupational therapy.~ This patient is under my care, and I have initiated the establishment of the plan of care.~ This patient will be followed by myself or a community physician who will periodically review the plan of care. Home Meds Active Scripts Acetaminophen (ACETAMINOPHEN) 325 Mg Tablet, 650 MG PO PRN Q4HRS PRN for TEMP OVER 100.4F OR MILD PAIN for 10 Days, #30 TAB Prov:BRIAN PHILLIP MD 10/25/20 Fluconazole (DIFLUCAN) 150 Mg Tablet, 1 TAB PO ONCE for candidiasis, #1 TAB 1 Refill Prov:BRIAN PHILLIP MD 10/25/20 Ondansetron (ONDANSETRON ODT) 4 Mg Tab.rapdis, 1 TAB PO PRN Q6-8HRS for nausea, #30 TAB Prov:BRIAN PHILLIP MD 10/25/20 Lactobacillus Rhamnosus Gg (CULTURELLE) 1 Each Cap.sprink, 1 CAP PO BID for probiotic for 14 Days, #28 CAP Prov:BRIAN PHILLIP MD 10/25/20 Amoxicillin/Potassium Clav (AMOX TR-K CLV 875-125 MG TAB) 1 Each Tablet, 1 TAB PO BID for abscess for 7 Days, #14 TAB Prov:BRIAN PHILLIP MD 10/25/20 Reported Medications [Thyroid Medicine ] No Conflict Check 10/21/20 Fluoxetine Hcl (FLUOXETINE ) 90 Mg Capsule.dr, 1 CAP PO WEEKLY for 28 Days, #4 CAP 0 Refills 10/21/20 Lisdexamfetamine Dimesylate (VYVANSE) 30 Mg Capsule, 1 CAP PO DAILYWBKFT MDD 1 Capsule(s) for 5 Days, #5 CAP 0 Refills 10/21/20 BRIAN PHILLIP MD Oct 25, 2020 12:14
--- NOTE | 2020-10-25 14:15 | NUR ---
Discharge Note: VINAYAK MONTAGUE [address] [address] Discharge instructions and discharge home medications reviewed with Patient and a copy given. All questions have been answered and understanding verbalized. The following instructions and handouts were given: F/U with Dr. Suárez within two weeks. Discontinued lines and drains: Peripheral IV intact. Patient discharged to Home with Home Health with Self via [facility].
== END 2020-10-25 14:15 | disposition home health service (06) | DRG 854 ==
LOC: ER 03:54 → 6 SOUTH 07:15
PROVIDERS: ADMIT Internal Medicine; ATTEND Internal Medicine
PROC: 0D9P0ZZ Drainage of Rectum, Open Approach (ICD-10-PCS; principal; 2020-10-21 11:00)
DX: A41.9 Sepsis, unspecified organism (principal); K61.2 Anorectal abscess; E44.0 Moderate protein-calorie malnutrition; R65.20 Severe sepsis without septic shock; E87.6 Hypokalemia; R91.1 Solitary pulmonary nodule; K62.89 Other specified diseases of anus and rectum; Z20.822 Contact with and (suspected) exposure to COVID-19; F32.9 Major depressive disorder, single episode, unspecified; F41.9 Anxiety disorder, unspecified; F90.9 Attention-deficit hyperactivity disorder, unspecified type; J30.9 Allergic rhinitis, unspecified; F12.90 Cannabis use, unspecified, uncomplicated; Z88.8 Allergy status to other drugs, medicaments and biological substances; Z68.25 Body mass index [BMI] 25.0-25.9, adult
CPT/HCPCS: 36415; 74177; 80048; 80053; 81001; 81025; 83605; 83735; 84100; 85025; 87040; 87071; 87075; 87076; 87077; 87086; 87426; 96365; 96366; 96375; 99285; A4930; A6253; A6266; A6402; J0696; J1100; J1650; J1885; J2270; J2405; J2543; J2704; J3010; J3490; J7030; J7120; Q9966; Q9967; U0003; G0378

== ENCOUNTER 2021-02-16 10:28 | Emergency (ER) | payer BC ==
[~2021-02-16] VITALS: Ht 154.9 cm; Wt 59.0 kg
[~2021-02-16 10:28] MED LIST: ACET325T21 PO; AMOX1TAB11 PO; FLUC150T PO; FLUO90CA5 PO; LACT1CAP19 PO; LISD30CA5 PO; ONDA4TAB12 PO; THYROID MEDICINE
[2021-02-16 12:18] LABS: BILIRUBIN,URINE NEGATIVE (NEG); CLARITY,URINE CLEAR; COLOR,URINE ORANGE; NITRITE,URINE POSITIVE (NEG); PROTEIN,URINE 30 mg/dL (NEG-TRACE)
[2021-02-16 12:24] LABS: U PREG PATIENT NEGATIVE (NEG)
[2021-02-16 12:37] LABS: BACTERIA,URINE FEW /HPF (0-FEW); WBC,URINE >40 /HPF (0-4)
[2021-02-16] MEDS ORDERED: IV NORMAL SALINE 1000ML BAG 1,000 ML IV ONE (13:30)
[2021-02-16] MEDS ORDERED: cefTRIAXone IV Push 1 GM VIAL. IVP ONE (13:30)
[2021-02-16] MEDS ORDERED: KETOROLAC 30 MG/ML VIAL. IVP ONE (13:30)
[2021-02-16] MEDS ORDERED: CEPH500C PO (13:35)
--- NOTE | 2021-02-16 13:35 | ED.ADGEN ---
Past Medical History Past Medical History: Other Additional Past Medical Histor: Dmitry's, ADHD Past Surgical History: Other Additional Past Surgical Histo: PERIRECTAL ABSCESS Smoking Status: Current Every Day Smoker Additional Information: DAILY VAPE Alcohol Use: Occasionally Drug Use: Marijuana Social History Narrative: "MEDICAL MARIJUANA" General Adult EDM: Chief Complaint: FLANK PAIN HPI: HPI: Patient is 26-year-old female who presents to the emergency room complaining of flank pain. Patient states that over the last week she has been having UTI symptoms including dysuria and urinary frequency. She states that last night she started running fevers and had a couple episodes of vomiting. She believes that she has a kidney infection. She started having a cramping flank pain earlier today. She believes she did have a fever this morning as well. Review of Systems: Review of Systems: Complete ROS is negative unless otherwise documented in HPI Current Medications: Current Medications Medications (Trade) Dose Ordered Sig/Geoff Start Time Stop Time Status Last Admin Dose Admin Ceftriaxone Sodium (Rocephin) 1 gm 1X ONCE 02/16/21 13:30 02/16/21 13:31 DC 02/16/21 13:44 1 GM Ketorolac Tromethamine (Toradol 30mg Vial) 30 mg 1X ONCE 02/16/21 13:30 02/16/21 13:31 DC 02/16/21 13:44 30 MG Sodium Chloride 1,000 ml @ 1,000 mls/hr 1X ONCE 02/16/21 13:30 02/16/21 14:29 DC 02/16/21 13:44 1,000 MLS/HR Allergies: Allergies: Allergies Coded Allergies Type Severity Reaction Last Updated Verified oseltamivir Allergy Intermediate 10/21/20 Yes Physical Exam: PE: General: Awake, alert, NAD. Well Nourished, well hydrated. Cooperative HEENT: Atraumatic, EOMI, PERRL, airway patent, moist oral mucosa Neck: Supple, trachea midline Respiratory: CTA bilaterally, normal effort, no wheezing/crackles CV: RRR, no murmur, cap refill <2 GI: Soft, nondistended, nontender, no masses MSK: No obvious deformities Skin: Warm, dry, intact Neuro: A&O x3, speech NL, sensory and motor grossly intact, no focal deficits Psych: Normal affect, normal mood, not suicidal or homicidal Current Patient Data: Labs: Laboratory Tests Test 02/16/21 11:55 Urine Collection Type Unknown Urine Color [place] Urine Clarity Clear Urine pH 6.0 (<5.0-8.0) Urine Specific [place] 1.015 (1.000-1.030) Urine Protein 30 mg/dL (NEG-TRACE) Urine Glucose (UA) Negative mg/dL (NEG) Urine Ketones (Stick) Negative mg/dL (NEG) Urine Blood Trace (NEG) Urine Nitrite Positive (NEG) Urine Bilirubin Negative (NEG) Urine Urobilinogen Dipstick 1.0 mg/dL (0.2 mg/dL) Urine Leukocyte Esterase Large (NEG) Urine RBC 1-2 /HPF (0-2) Urine WBC >40 /HPF (0-4) Urine Squamous Epithelial Cells Few /LPF Urine Bacteria Few /HPF (0-FEW) Urine Mucus Slight /LPF Urine Test Negative (NEG) Vital Signs: Vital Signs Date Time Temp Pulse Resp B/P (MAP) Pulse Ox O2 Delivery O2 Flow Rate FiO2 02/16/21 14:28 70 99/70 (80) 100 Room Air 02/16/21 11:48 97.9 16 97.9 EKG: EKG: [] Heart Score: C/O Chest Pain: N/A Risk Factors: Risk Factors: DM, Current or recent (<one month) smoker, HTN, HLP, family history of CAD, obesity. Risk Scores: Score 0 - 3: 2.5% MACE over next 6 weeks - Discharge Home Score 4 - 6: 20.3% MACE over next 6 weeks - Admit for Clinical Observation Score 7 - 10: 72.7% MACE over next 6 weeks - Early Invasive Strategies Radiology/Procedures: Radiology/Procedures: [] Course & Med Decision Making: Course & Med Decision Making Pertinent Labs and Imaging studies reviewed. (See chart for details) Patient is 26-year-old female who presents to the emergency room complaining of flank pain and UTI symptoms. UA shows significant UTI. Patient given fluids and a dose of Rocephin. She was placed on antibiotics. We discussed signs and symptoms of worsening infection. Patient will return to the emergency room if her symptoms do not improve over the next 24 to 48 hours. Patient's test results and vitals while in the ED were fully reviewed and discussed with the patient. Patient is stable and at this time does not need admission to the hospital. We have discussed strict return precautions and the importance of following up with their Primary Care Physician. Patient stated understanding and was given an opportunity to ask any questions. Patient is in agreement with plan. Rossy Disclaimer: Rossy Disclaimer: This electronic medical record was generated, in whole or in part, using a voice recognition dictation system. Departure Departure Impression: Primary Impression: Pyelonephritis Disposition: HOME / SELF CARE / HOMELESS Condition: STABLE Referrals: UNKNOWN PCP NAME (PCP) Patient Instructions: Pyelonephritis, Adult Scripts Cephalexin (CEPHALEXIN) 500 Mg Capsule 1 CAP PO BID for 10 Days, #20 CAP Prov: LUIS CHEN MD 02/16/21 LUIS CHEN MD Feb 16, 2021 13:35
[2021-02-16 14:28] VITALS: BP 99/70
== END 2021-02-16 14:40 | disposition home or self-care (01) ==
LOC: ER 10:28
DX: N12 Tubulo-interstitial nephritis, not specified as acute or chronic (principal); F17.200 Nicotine dependence, unspecified, uncomplicated
CPT/HCPCS: 81001; 81025; 96361; 96374; 96375; 99284; J0696; J1885; J7030